=== PATIENT | male | born 1940 | race Caucasian/White ===

== ENCOUNTER 2018-08-31 13:14 | Emergency (ER) | payer MEDICARE, OTHER, SELFPAY ==
[2018-08-31 13:21] VITALS: BP 117/80; PULSE 65; RESP 16; TEMP 36.5; O2SAT 97
--- NOTE | 2018-08-31 14:15 | NUR.NOTE ---
Nursing Note: Access; Mckayla, called stating patient left without being seen. Jeannette Albarran
== END 2018-08-31 14:55 | disposition left before discharge ==
LOC: ER 14:00
PROVIDERS: PCP Family Medicine
DX: Z53.29 Procedure and treatment not carried out because of patient's decision for other reasons (principal)

== ENCOUNTER 2021-05-01 15:49 | Emergency (ER) | payer MEDICARE, OTHER, SELFPAY ==
[2021-05-01] VITALS (23 sets, daily range): BP systolic 138–158; BP diastolic 60–88; PULSE 49–64; RESP 12–19; TEMP 36.6; O2SAT 94–98
--- NOTE | 2021-05-01 16:00 | DI.CT_ITS ---
Exam(s) CT HEAD CERVICAL SPINE WO EXAM: CT HEAD CERVICAL SPINE WO CLINICAL HISTORY: fall,injury, on eliquis. TECHNIQUE: Imaging Protocol: Axial computed tomography images with coronal and sagittal reformatted images were created and reviewed COMPARISON: No exams were available for comparison FINDINGS: CT Head: Ventricles and Extra axial spaces: Normal in size and morphology for the patient's age. Hemorrhage: None. Cerebral parenchyma: No acute territorial infarct is present. There are areas of decreased attenuati on in the white matter most consistent with chronic microvascular ischemic disease. Midline shift: None. Brainstem/Cerebellum: Normal. Calvarium: Normal. Visualized Paranasal sinuses/Mastoids: Clear. Soft Tissues: Unremarkable. CT Cervical Spine: Bones: No acute fracture or subluxation. Multilevel degenerative changes are seen in the spine. Soft Tissues: Unremarkable. Thyroid gland: Unremarkable. Lung Apices: Clear. IMPRESSION: 1. No acute intracranial process. 2. No acute fracture or subluxation in the cervical spine. RADIATION DOSE DELIVERED: 1,399mGy.cm Total DLP DATA REPOSITORY: All CT scans at this facility are submitted to the National Radiology Data Registry (NRDR) Dose Index Registry (DIR) with the [employer] (ACR). RADIATION OPTIMIZATION: All CT scans at this facility use at least one of these dose optimization te chniques: automated exposure control; mA and/or kV adjustment per patient size (includes targeted exa ms where dose is matched to clinical indication); or iterative reconstruction.
--- NOTE | 2021-05-01 16:07 | ED.GENADUL_ITS ---
Discharge Plan Disposition Patient Disposition: HOME Condition: Stable Discharge Details Clinical Impression: Laceration of scalp, Head injury, Fall Primary Care Provider: Benny Gallagher ED Provider: Cliff Quintana Home Meds and New Rx's Prescriptions: Continued atorvastatin 40 mg Tablet 40 mg PO DAILY RF: 0 triamcinolone acetonide 0.1 % Cream 1 applic TOPICAL DAILY PRNRF: 0 omeprazole 20 mg Capsule,Delayed Release(Dr/Ec) 20 mg PO BID RF: 0 folic acid 1 mg Tablet 1 mg PO DAILY RF: 0 furosemide [Lasix] 20 mg Tablet 40 mg PO BID RF: 0 metoprolol succinate 25 mg Tablet Extended Release 24 Hr 20 mg PO DAILY RF: 0 Spiriva with HandiHaler 18 mcg Capsule, W/Inhalation Device 1 tab Inhalation DAILY RF: 0 apixaban 5 mg Tablet 1 tab PO BID RF: 0 buspirone 5 mg Tablet 5 mg PO BID RF: 0 doxycycline hyclate 100 mg Capsule 100 mg PO BID RF: 0 polyethylene glycol 3350 [Miralax] 17 gram Powder In Packet 17 g PO DAILY PRNRF: 0 tramadol 50 mg Tablet 50 mg PO BID PRNRF: 0 spironolactone 25 mg Tablet 25 mg PO DAILY RF: 0 levothyroxine 125 mcg Tablet 125 mcg PO DAILY RF: 0 docusate sodium [Colace] 100 mg Capsule 100 mg PO DAILY PRNRF: 0 aspirin 81 mg Tablet 81 mg PO DAILY RF: 0 multivitamin with minerals Tablet 1 tab PO DAILY RF: 0 Discharge Instructions Instructions: Head Injury (ED), Staple Care (ED) Additional Instructions: CT imaging of your head, neck and x-ray of your left elbow is all unremarkable. Laceration was repaired with 4 estiven. Cool compresses as tolerated. Please watch for new or worsening symptoms and return to the ER for any concerns. You may apply antibiotic dressing daily. Estiven should be removed in 5 days. I recommend contacting your primary care provider tomorrow to make them aware of your ER visit and need for outpatient reevaluation. Discharge Data Discharge Date/Time-TO BE ENTERED AT DEPARTURE: 05/01/21 18:30 Medical Decision Making 80-year-old gentleman who is anticoagulated, had a mechanical fall just prior to arrival injuring his left elbow and striking the top of his head sustaining laceration. Tetanus status appears to be up-to-date. Will apply LET. Will obtain CT imaging of head and C-spine as well as x-ray of left elbow. CT imaging of head and C-spine read by radiology as negative. C-collar removed. X-ray of left elbow read by radiology as negative Abrasion was cleaned. The head wound was thoroughly irrigated and cleaned and then approximate using 4 estiven. Patient tolerated well Patient remains hemodynamically stable and neurologically intact. He was witnessed ambulating to the restroom without difficulty. Patient has no additional questions or concerns and is comfortable discharge. Patient's son will pick him up from the ER. HPI General Mode of arrival: EMS . Date/Time Provider Initiated Documentation: 05/01/21 16:04 . Limitations to Documentation: no limitations . Information obtained by: patient and EMS . HPI Narrative: Is an 80-year-old gentleman, presenting via EMS, with a Chris history of COPD, hypertension, GERD, thyroid disease, on apixaban because of his heart valve, presenting to the ER with a chief complaint of mechanical fall and head injury. He states just prior to arrival he was walking [facility] up a stair, missed a stair, falling, sustaining a scalp laceration, striking his head, diffuse mild posterior neck pain and a left elbow abrasion. He denies LOC, global headache, visual changes, chest pain, shortness of breath abdominal pain, nausea vomiting, incontinence, numbness, tingling, weakness. He was asymptomatic prior to mechanical fall. Reports mild pain at the site of his laceration. Believes tetanus status is up-to-date Related Data Home Medications Medication Instructions Recorded Confirmed Spiriva with HandiHaler 1 tab INHALATION DAILY 08/31/18 05/01/21 apixaban 1 tab PO BID 08/31/18 05/01/21 atorvastatin 40 mg PO DAILY 08/31/18 05/01/21 folic acid 1 mg PO DAILY 08/31/18 05/01/21 furosemide [Lasix] 40 mg PO BID 08/31/18 05/01/21 metoprolol succinate 20 mg PO DAILY 08/31/18 05/01/21 omeprazole 20 mg PO BID 08/31/18 05/01/21 triamcinolone acetonide 1 applic TOPICAL DAILY PRN 08/31/18 05/01/21 aspirin 81 mg PO DAILY 05/01/21 05/01/21 buspirone 5 mg PO BID 05/01/21 05/01/21 docusate sodium [Colace] 100 mg PO DAILY PRN 05/01/21 05/01/21 doxycycline hyclate 100 mg PO BID 05/01/21 05/01/21 levothyroxine 125 mcg PO DAILY 05/01/21 05/01/21 multivitamin with minerals 1 tab PO DAILY 05/01/21 05/01/21 polyethylene glycol 3350 [Miralax] 17 g PO DAILY PRN 05/01/21 05/01/21 spironolactone 25 mg PO DAILY 05/01/21 05/01/21 tramadol 50 mg PO BID PRN 05/01/21 05/01/21 Allergies Allergy/AdvReac Type Severity Reaction Status Date / Time acetaminophen [From Percocet] Allergy Unverified 05/01/21 15:55 cephalexin Allergy Unverified 05/01/21 15:55 latex Allergy Unverified 05/01/21 16:01 lorazepam [From Ativan] Allergy Unverified 05/01/21 16:01 oxazepam [From Serax] Allergy Unverified 05/01/21 15:55 oxycodone [From Percocet] Allergy Unverified 05/01/21 15:55 rofecoxib [From Vioxx] Allergy Unverified 05/01/21 15:55 zolpidem [From Ambien] Allergy Unverified 05/01/21 15:55 amex Allergy Uncoded 05/01/21 15:55 coapaxine Allergy Uncoded 05/01/21 15:55 colabazet Allergy Uncoded 05/01/21 15:55 General Stated Complaint: Laceration SIMONE: 3 Review of Systems Constitutional Constitutional: Denies fatigue, Denies fever(s) and Denies headache(s) Eyes Eyes: Denies change in vision ENT Ears, Nose, Mouth, and Throat: Denies headache(s) Cardiovascular Cardiovascular: Denies chest pain and Denies dyspnea Respiratory Respiratory: Denies cough and Denies dyspnea Gastrointestinal Gastrointestinal: Denies abdominal pain, Denies nausea and Denies vomiting Musculoskeletal Musculoskeletal: Denies back pain Integumentary/Breasts Skin/Breast: Denies rash Neurologic Neurologic: Denies headache(s) Endocrine Endocrine: Denies fatigue Hematologic/Lymphatic Hematologic/Lymphatic: Reports easy bleeding and Reports easy bruising [facility] Social History Smoking/Tobacco Use Status: Never Smoking risk assessment performed?: Yes Drug use: Never Substance use type: does not use Do you feel safe at home: Yes Do you feel safe in your relationship?: Yes Exam Const General: cooperative, healthy appearing, comfortable and no acute distress Orientation: alert, awake and oriented x3 [facility] Head: normocephalic Head images: 1. 2 cm laceration. Bleeding controlled. Minimal local discomfort to palpation. No crepitus or foreign body. General nose exam: external nose normal Face and sinus: normal facial exam Mouth: moist mucous membranes Eyes General: appearance normal, both eyes and all related structures Alignment and Position: alignment normal Periorbital: periorbital findings normal Eyelids: eyelids normal Conjunctivae: conjunctivae normal Sclera: sclerae normal Cornea: corneas normal Pupils: PERRL EOM: EOM intact bilaterally Direct ophthalmoscopy: normal light reflex Neck Neck: normal visual inspection, trachea midline, supple, tender (Diffuse- posterior) and other (In a hard c-collar) Resp Effort & Inspection: normal respiratory effort and able to speak in complete sentences Auscultation: clear to auscultation bilaterally Cardio Rate: regular rate Rhythm: regular rhythm GI Palpation: soft and nontender Back/Spine/Pelvis Back: No back tenderness Skin General skin exam: no rashes or lesions noted Neuro General: patient alert, patient awake, patient oriented x3, moves all extremities and no focal motor deficits Cranial Nerves: CN's II-XI intact bilaterally Cognition: normal cognition Speech: speech normal Sensory Exam: no sensory deficits noted Extrem Shoulder/upper arm images: 1. Abrasion, mild local discomfort. Neuro, vascular, tendon intact Right lower extremity: normal to inspection, full ROM and normal capillary refill Left lower extremity: normal to inspection, full ROM and normal capillary refill Psych Appearance: grossly normal Mental Status: mental status grossly normal Course Vital Signs Vital signs: Vital Signs Temperature 36.6 C 05/01/21 15:48 Pulse 64 05/01/21 15:48 Blood Pressure 140/88 05/01/21 15:48 Pulse Oximetry 98 05/01/21 15:48 Temperature 36.6 C 05/01/21 15:48 Temperature Source Temporal Artery Scan 05/01/21 15:48 Pulse 64 05/01/21 15:48 Respiratory Effort Non-Labored 05/01/21 15:53 Blood Pressure 140/88 05/01/21 15:48 Blood Pressure Position Sitting 05/01/21 15:48 Pulse Oximetry 98 05/01/21 15:48 Oxygen Delivery Method Room Air 05/01/21 15:48 Oxygen Flow Rate 0 05/01/21 15:48 Pain Level 6 05/01/21 15:48 Procedures Laceration Laceration 1: Site: scalp Side (If applicable): left Size (cm): 2 Description: linear Depth: simple, single layer Local Anesthetic: other anesthetic (LET) Pre-repair: wound explored, irrigated extensively and deep structures intact Technique: other (4 estiven)
--- NOTE | 2021-05-01 16:15 | DI.RAD_ITS ---
Exam(s) XR ELBOW LT COMPLETE EXAM: XR ELBOW LT COMPLETE CLINICAL HISTORY: fall/injury. TECHNIQUE: 2D digital imaging was performed. COMPARISON: No exams were available for comparison FINDINGS: BONES: No acute fracture is present. No bony destructive lesion is seen. JOINTS: The elbow is normally aligned. No joint effusion is seen. SOFT TISSUE: Normal. IMPRESSION: No acute fracture or dislocation. DATA REPOSITORY: RADIATION DOSE DELIVERED:
--- NOTE | 2021-05-01 17:34 | DI.VRAD_ITS ---
PROCEDURE INFORMATION: Exam: CT Head Without Contrast Exam date and time: 05/01/2021 4:05 PM Age: 80 years old Clinical indication: Injury or trauma; Fall; Blunt trauma (contusions or hematomas); Additional info: On eliquis TECHNIQUE: Imaging protocol: Computed tomography of the head without contrast. COMPARISON: No relevant prior studies available. FINDINGS: Brain: Global cerebral volume loss is consistent with patient's age. Minimal white matter hypodensities, typically seen with small vessel disease/chronic white-matter ischemic changes of aging. No acute stroke. No intracranial hemorrhage or mass effect. No abnormal intra-axial or extra-axial fluid collection. Cerebral ventricles: Mild ventriculomegaly consistent with global cerebral volume loss, unchanged. Paranasal sinuses: Visualized sinuses are unremarkable. No fluid levels. Mastoid air cells: Visualized mastoid air cells are well aerated. Bones/joints: Unremarkable. No acute fracture. Soft tissues: Unremarkable. IMPRESSION: No acute abnormality. PROCEDURE INFORMATION: Exam: CT Cervical Spine Without Contrast Exam date and time: 05/01/2021 4:05 PM Age: 80 years old Clinical indication: Injury or trauma; Fall; Blunt trauma (contusions or hematomas); Additional info: On eliquis TECHNIQUE: Imaging protocol: Computed tomography images of the cervical spine without contrast. COMPARISON: No relevant prior studies available. FINDINGS: Bones/joints: No fracture or subluxation. Discs/Spinal canal/Neural foramina: Degenerative disc disease and facet arthrosis throughout the cervical spine. No severe bony spinal stenosis. Retropharyngeal space: Normal retropharyngeal soft tissues. Lungs: Lung apices are clear. Soft tissues: Unremarkable. IMPRESSION: No fracture or subluxation. Dictated and Authenticated by: Julian Long MD. Ordering:MAURICIO Coronado MD
[2021-05-01] MEDS: Lidocaine/Epinephri/Tetracaine Topical Gel 3 ML TP (17:37)
--- NOTE | 2021-05-01 17:47 | DI.VRAD_ITS ---
PROCEDURE INFORMATION: Exam: XR Left Elbow Exam date and time: 05/01/2021 4:16 PM Age: 80 years old Clinical indication: Injury or trauma; Fall; Sprain or strain; Elbow; Left; Additional info: On eliquis TECHNIQUE: Imaging protocol: XR Left elbow. Views: 3 or more views. Total images: 4 COMPARISON: No relevant prior studies available. FINDINGS: Bones/joints: No fracture, elbow effusion or dislocation. There is a tiny olecranon spur. Soft tissues: Unremarkable. IMPRESSION: Nothing acute. Dictated and Authenticated by: Duane Leon MD. Ordering:MAURICIO Coronado MD
== END 2021-05-01 18:30 | disposition home or self-care (01) ==
PROVIDERS: Emergency Provider Physician Assistant; PCP Family Medicine
DX: S01.01XA Laceration without foreign body of scalp, initial encounter (principal); W01.0XXA Fall on same level from slipping, tripping and stumbling without subsequent striking against object, initial encounter
CPT/HCPCS: 12001; 99284; 70450; 72125; 73080; 99283

== ENCOUNTER → 2022-10-09 00:42 | Outpatient (CLI) | payer OTHER, SELFPAY ==
--- NOTE | 2022-10-09 10:30 | DI.RAD_ITS ---
Exam(s) RF MODIFIED SPEECH BA SWALLOW TECHNIQUE: Modified barium swallow was performed in conjunction with speech pathology. CONTRAST MATERIAL: Oral barium Oral water soluble contrast was administered. COMPARISON: No exams were available for comparison FINDINGS: Fluoroscopy was provided during swallowing mechanism study performed by the speech therapist. Please note that this is not a formal esophagram. There is no javier aspiration evident on this study (see speech therapist report). No evidence of hypertense upper esophageal sphincter. No large cervical osteophytes indenting the barium column. Administered radiopaque pill exhibited significant stasis in the cervical esophagus. Required claritza us additional boluses 2 move it more distally into the stomach. There was no Zenker's diverticulum d emonstrated at this level. No obvious abnormality at the GE junction. No hiatal hernia evident. IMPRESSION: As above. Please refer to separate speech therapist report. Total fluoroscopy time = 2 minutes 27 seconds RADIATION DOSE DELIVERED: kimberly Whitaker=15.1 mGy
[2022-10-09] MEDS: Barium Sulfate 700 MG TAB PO (10:35)
[2022-10-09] MEDS: Barium Sulfate 81% w/w for Oral Suspension 148 GM BTL 90 GM PO (10:37)
[2022-10-09] MEDS: Barium Sulfate Oral Paste 40% W/V 230 ML TUBE 13 ML PO (10:39)
[2022-10-09] MEDS: Barium Sulfate 40% W/V 240 ML BTL 80 ML PO (10:39)
--- NOTE | 2022-10-09 10:57 | ST.MBS ---
Date of Service Date of service: 10/09/22 Time of Service: 10:00 Modified Barium Swallow Study Findings: Video fluoroscopic Swallowing Evaluation (VFSE) / Modified Barium Swallow Study (MBSS) Speech Language Pathology Report Patient referred for VFSE/MBSS from [facility] Care given complaints of choking. HPI & Patient report of function: 81 y/o M? with celiac disease, anxiety, CHF, dyskinesia of esophagus, presence of heart-valve replacement,atrial fibrilation, presenting with a longstanding history of postprandial coughing and sneezing. He recalls having a swallow study (?regular vs modified) done over 10 years ago. No history of pneumonia and no known history of CALL PERSON services. Medical History All Active Problems?(Updated 08/21/22 @ 15:15 by Kayce Gee) Laceration of scalp (Acute) Head injury (Acute) Fall (Acute) Medical History?(Updated 08/21/22 @ 15:15 by Kayce Gee) A-fib Anxiety disorder Celiac disease Chronic systolic (congestive) heart failure Closed fracture of clavicle Closed fracture of humerus Dermatophytosis of nail Dyskinesia of esophagus Dysphagia Erythematous condition Impotence of organic origin Keratoderma, acquired longterm current use of anticoagulant Other hammer toe (acquired) Other specified hypothyroidism Presence of prosthetic heart valve Rheumatoid arthritis Sensorineural hearing loss Surgical History?(Updated 08/21/22 @ 15:15 by Kayce Gee) Presence of other heart-valve replacement Social History Education Level: high school (+ ) 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 Communication Needs Primary languages spoken: Georgian, also speaks English? Hearing status: Aided Bilaterally Vision status: wears glasses IMPRESSIONS: FUNCTIONAL COMMUNICATION MEAUSURE: [id number] (RITCHIE-NOMS FCM LEVEL 6) Swallow safety is mildly impaired; swallow efficiency is impaired. Mild chronic jezn-srmetdbnmj-gsyenfvtci dysphagia. Characterized primarily by the physiologic deficits as outlined below, resulting in laryngeal penetration (thin liquids), residue (pharyngeal, oral), stasis(esophageal). Patient appears to be at low risk for potential aspiration PNA and/or pulmonary compromise and low risk for malnutrition, low risk for dehydration. Diet modification is indicated; non-oral nutrition is not indicated. Swallow prognosis is good given: Positive prognostic factors: Severity, Motivation, Cognitive status, Negative prognostic factors: Age, Time since onset, and pending patient/caregiver training in risk management as outlined, including use of trialed compensatory strategies. Patient appears to be a good candidate for behavioral swallow rehabilitation. Specialist referrals:? GI to evaluate esophageal phase impairments and potential interventions. RECOMMENDATIONS: Diet Texture Recommendation:? IDDSI LEVEL 6-Soft & Bite-Sized Solids LIQUIDS 0-Thin Liquids Please see further details at?[email or web address].[email or web address] MEDICATIONS CUT OR CRUSHED ABLE with 4-Puree Diet texture modification is per patient's preference; please adjust diet textures at patient's discretion & collaboration with care team. Do not alter medications (e.g., cut)? without advice from your MD or pharmacist. Risk Management Strategies:? Behavioral reflux precautions, including upright position during + 90 mins after meals.\ Chew very thoroughly and add sauces/gravies to your foods. Small bites, approx [id number] Small sips, approx 10 mL Alternate solids/liquids as able Multiple swallows per bolus to encourage clearance of pharyngeal stasis/residue Control risk factors for aspiration pneumonia via (a) thorough oral hygiene & (b) maintaining physical mobility as tolerated PLAN: Place GI referral with [facility]. Therapy: Recommend subsequent outpatient session with CALL PERSON to review results of today's exam and develop treatment plan as appropriate. Likely 1-2 sessions needed to train compensatory strategies. Goals: 1. Patient will report implementation of reflux management strategies to reduce impact of possible GERD on swallow function. 2. Patient will report increased frequency and diligence of oral care to reduce risk of pulmonary complications of aspiration. 2. Patient will demonstrate independent use compensatory swallow strategies as described in recommendations section x1-2 sessions. 3. Patient will verbalize understanding of education r/t normal vs disordered swallow function, s/sx of aspiration to watch for, relationship between respiratory function and deglutition, results of this examination, and rationale for recommended diet textures and risk management strategies including. ----- OBJECTIVE Videofluoroscopic Swallow Evaluation (VFSE/MBSS) was conducted in the lateral and spajbquh-[id number] projection by Speech-Language Pathologist, in collaboration with Radiologist, to evaluate oropharyngeal swallow function. Anatomic view under fluoroscopy: WFL PO Barium Contrast Trials Oral barium water-soluble contrast was administered as follows: IDDSI Level 0 Varibar thin liquid (40% w/v) IDDSI Level 2 Varibar nectar thick/mildly thick liquid (40% w/v) IDDSI Level 4 Varibar pudding/pureed/extremely thick (40% w/v) IDDSI Level 7 Regular Solid: 1/2 blayne cracker coated in 3 mL Varibar pudding 13 mm barium tablet taken with Thin Liquids. MBSImP Component Scores: COMPONENT Scale SCORE 1 Lip closure (0-4) 0 Resulted in no labial escape 2 Hold Position (0-3) 0 Maintained a cohesive bolus between tongue to palatal seal 3 Bolus Preparation (0-4) 1 Resulted in slow prolonged chewing/mashing with complete re-collection 4 Bolus Transport (0-4) 1 Demonstrated delayed initiation of tongue motion 5 Oral Residue (0-4) 1 Was a trace, lining oral structures 6 Swallow Initiation (0-4) 0 Occurred as bolus head at posterior angle of the mandibular ramus 7 Soft Palate Elevation (0-4) 0 Resulted in no bolus between soft palate and the pharyngeal wall 8 Laryngeal Elevation (0-3) 1 Was decreased with partial superior movement of thyroid cartilage/partial approximation of arytenoids to epiglottic petiole 9 Anterior Hyoid Motion (0-2) 0 Demonstrated complete anterior movement 10 Epiglottic Movement (0-2) 1 Resulted in partial inversion 11 Laryngeal Closure (0-2) 1 Was incomplete with narrow a column of air/contrast in laryngeal vestibule 12 Pharyngeal Stripping Wave (0-2) 1 Was present, but diminished 13 Pharyngeal Contraction (0-3) 0 Was complete 14 PES Opening (0-3) 1 Demonstrated partial distension/partial duration, with partial obstruction of flow 15 Tongue Base Retraction (0-4) 0 Allowed no contrast between the tongue base and posterior pharyngeal wall 16 Pharyngeal Residue (0-4) 2 Was a collection of residue within or on pharyngeal structures (likely under-estimate of pharyngeal function, see notes below). 17 Esophageal Clearance (0-4) 2 Resulted in esophageal retention with retrograde flow below pharyngoesophageal segment Notes: Noting trace deep penetration with no aspiration during or after the swallow for large volumes of thin liquids. No penetration with single, small sips liquid. Patient with good pharyngeal clearance of puree and solids except when swallowing a puree bolus chaser to clear proximal retention of 13mm tablet; appearing with retrograde flow of puree bolus through UES due to the tablet preventing complete bolus flow through UES. Patient was sensate to this residue and appeared with gagging/coughing response, able to clear with re-swallow. Results: COMPONENT Scale SCORE 1 Oral Score (0-18) 2 2 Pharyngeal Score (0-29) 7 3 Esophageal Score (0-4) 2 Dysphagia Outcome and Severity Scale: COMPONENT Scale SCORE 1 LEVEL (1-7) 5 Full PO: Modified Diet and/or [place] - Mild dysphagia; Distant supervision may need 1 diet consistency restricted Penetration-Aspiration Scale: COMPONENT Scale SCORE 1 Thin liquid (1-8) 4 Contrast entered the airway, contacted the vocal folds, and was ejected from the airway. 2 [place] thick (1-8) NA 3 Honey thick (1-8) NA 4 Pudding thick (1-8) 1 Contrast did not enter the airway 5 Cookie (1-8) 1 Contrast did not enter the airway Trialed Compensatory Strategies & Outcome: Maneuvers Successful (+) Unsuccessful (-) Postures Successful (+) Unsuccessful (-) 3 second Preparatory Set? ? +/- Chin Tuck Posture? ? Cough? ? Posterior Head tilt? Reflexive? Cued? Throat Clear? ? Head Tilt to? Reflexive? Left? Cued? Right? ? Saliva swallow? ? + Head Turn/Rotate to? ? Supraglottic Swallow? Left? ? Super-supraglottic Swallow? Right? ? Bolus Modifications Successful (+) Unsuccessful (-) Delivery/Alternating Consistencies ? Follow with Liquid Wash - (to clear esophageal stasis) ? Follow with Solid Bolus? + (to clear oral stasis of tablet) Delivery/Via Straw? ? Reduced Volume? ? + Reduced Rate of Intake? ? Increased Viscosity? ? + Other:?? ? Thank you for allowing us to take part in this patient's care. Please feel free to contact the [facility] Speech Language Pathology Department with any questions/concerns. Coding CPT Codes MOTION FLUOROSCOPY/SWALLOW - [id number] ([id number])
== END ==
PROVIDERS: PCP Internal Medicine; Visit Provider Internal Medicine
DX: R13.10 Dysphagia, unspecified (principal)
CPT/HCPCS: 92611; 74221

== ENCOUNTER 2025-06-18 19:25 | Inpatient (IN) | payer MEDICARE, SELFPAY ==
[2025-06-18 19:39] VITALS: BP 101/81; PULSE 64; RESP 17; TEMP 36.4; O2SAT 97
[2025-06-18 20:00] VITALS: BP 101/81; PULSE 64; RESP 17; TEMP 36.4; O2SAT 97
--- NOTE | 2025-06-18 22:28 | W.PM.HP.N ---
Date of service: 06/18/25 Time of Service: 22:28 Assessment and Plan Assessment and plan (1) Chronic systolic (congestive) heart failure: Assessment and plan: Would have benefited from bringing a copy of his interoperative report or an echocardiogram. His medications do indicate that he has CHF. Hopefully be able to figure this out tomorrow. (2) correction current use of anticoagulant: Assessment and plan: The patient is on Eliquis but once again is unclear what kind of valve has been placed. I did not hear a significant mechanical sound but the patient could have a mechanical valve. It is my impression that Eliquis is not usually used for mechanical valves and these folks usually use Coumadin (3) Presence of prosthetic heart valve: Assessment and plan: As above, will need more research (4) A-fib: Assessment and plan: Patient is on a rate control as well as Eliquis. Metoprolol 20 mg daily extended release (5) Anxiety disorder: Assessment and plan: Continue with medical management (6) Sensorineural hearing loss: Assessment and plan: Noted (7) Dyslipidemia: Status: Acute Assessment and plan: Continue with statin (8) Iron deficiency: Status: Acute Assessment and plan: Continue with iron (9) COPD (chronic obstructive pulmonary disease): Status: Chronic Assessment and plan: Patient is on albuterol as well as DuoNeb. Continue with these medications History of Present Illness History of Present Illness Chief Complaint: valve was leaking Narrative: This is a 84-year-old gentleman who was transferred from [facility] after a TAVR. I have reviewed the transfer documents and there is absolutely no H&P or discharge summary attached to his file. The patient is significantly hard of hearing and is very difficult to get a linear history from him. Patient states that he had his first valve replacement in the early s and this was a recheck and replacement. Patient states that his main complaint prior to this was shortness of breath. Patient states that the doctor who recommended this procedure is named Cam. Patient does not know for sure what kind of valve was replaced but he thinks it was a bovine valve. In regards to his transfer packet there are postop instructions and med rec. No studies op reports H&P or discharge summary was included. I did discuss with my colleague Dr. Dorsey and no doc to doc conversation was had either Review of Systems All systems reviewed & are unremarkable except as noted in HPI and below PFSH All Active Problems (Updated 06/18/25 @ 22:33 by Bear Samano MD) COPD (chronic obstructive pulmonary disease) (Chronic) Iron deficiency (Acute) Dyslipidemia (Acute) Corns and callosities (Acute) Pain, foot (Acute) Nail dystrophy (Acute) Laceration of scalp (Acute) Head injury (Acute) Fall (Acute) Medical History (Updated 06/18/25 @ 22:33 by Bear Samano MD) A-fib Sensorineural hearing loss Rheumatoid arthritis Presence of prosthetic heart valve Other specified hypothyroidism Other hammer toe (acquired) 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 Keratoderma, acquired Impotence of organic origin Closed fracture of humerus Closed fracture of clavicle Erythematous condition Dyskinesia of esophagus Dermatophytosis of nail Chronic systolic (congestive) heart failure Celiac disease Anxiety disorder Dysphagia Surgical History (Updated 08/21/22 @ 15:15 by Kayce Gee) Presence of other heart-valve replacement Social History Smoking/Tobacco Use Status: Never Smoking risk assessment performed?: Yes Drug use: Never Substance use type: does not use Housing: house Education Level: high school (+ [employer]) Current gender identity: male Do you feel safe at home: Yes Do you feel safe in your relationship?: Yes Meds Allergies and Home Medications Allergies Allergy/AdvReac Type Severity Reaction Status Date / Time acetaminophen (From Percocet) Allergy Unverified 05/01/21 15:55 cephalexin Allergy Unverified 05/01/21 15:55 diphenhydramine (From Allergy Verified 08/21/22 15:38 Benadryl) ibuprofen (From Advil) Allergy Verified 08/21/22 15:38 latex Allergy Unverified 05/01/21 16:01 lisinopril Allergy Verified 08/21/22 15:37 lorazepam (From Ativan) Allergy Unverified 05/01/21 16:01 metoclopramide (From Reglan) Allergy Verified 08/21/22 15:37 oxazepam (From Serax) Allergy Unverified 05/01/21 15:55 oxycodone (From Percocet) Allergy Unverified 05/01/21 15:55 Penicillins Allergy Verified 08/21/22 15:37 prochlorperazine (From Allergy Verified 08/21/22 15:38 Compazine) rofecoxib (From Vioxx) Allergy Unverified 05/01/21 15:55 zolpidem (From Ambien) Allergy Unverified 05/01/21 15:55 amex Allergy Uncoded 05/01/21 15:55 coapaxine Allergy Uncoded 05/01/21 15:55 colabazet Allergy Uncoded 05/01/21 15:55 Home Medications ?Medication ?Instructions ?Recorded ?Confirmed ?Type apixaban 5 mg tablet 1 tab PO BID 08/31/18 06/18/25 History atorvastatin 40 mg tablet 40 mg PO DAILY 08/31/18 06/18/25 History folic acid 1 mg tablet 1 mg PO DAILY 08/31/18 06/18/25 History omeprazole 20 mg capsule,delayed 20 mg PO BID 08/31/18 06/18/25 History release triamcinolone acetonide 0.1 % 1 applic topical DAILY PRN 08/31/18 06/18/25 History topical cream buspirone 5 mg tablet 5 mg PO BID 05/01/21 06/18/25 History docusate sodium 100 mg capsule 100 mg PO DAILY PRN 05/01/21 12/01/22 History (Colace) levothyroxine 125 mcg tablet 125 mcg PO DAILY 05/01/21 06/18/25 History polyethylene glycol 3350 17 gram 17 g PO DAILY PRN 05/01/21 06/18/25 History oral powder packet (Miralax) spironolactone 25 mg tablet 25 mg PO DAILY 05/01/21 06/18/25 History tramadol 50 mg tablet 50 mg PO BID PRN 05/01/21 06/18/25 History albuterol sulfate 2.5 mg/3 mL 2.5 mg inhalation Q6H PRN 08/21/22 06/18/25 History (0.083 %) solution for nebulization carboxymethylcellulose sodium 0.5 2 drp ophthalmic (eye) DIRECTED 08/21/22 06/18/25 History % eye drops PRN diclofenac sodium 1 % topical gel 2 g topical DIRECTED 08/21/22 12/01/22 History ferrous sulfate 325 mg (65 mg mg PO 08/21/22 12/01/22 History iron) capsule,extended release hydroxychloroquine 200 mg tablet 200 mg PO BID 08/21/22 06/18/25 History acetaminophen 500 mg tablet 1,000 mg PO Q6H PRN 06/18/25 06/18/25 History doxycycline hyclate 100 mg capsule 100 mg PO ONCE 06/18/25 06/18/25 History empagliflozin 25 mg tablet 12.5 mg PO DAILY 06/18/25 06/18/25 History (Jardiance) fluticasone propionate 50 2 spray intranasal DAILY 06/18/25 06/18/25 History mcg/actuation nasal spray,suspension (Flonase Allergy Relief) guaifenesin 600 mg tablet, 600 mg PO BID 06/18/25 06/18/25 History extended release 12 hr ipratropium 0.5 mg-albuterol 3 mg 3 ml inhalation Q6H 06/18/25 06/18/25 History (2.5 mg base)/3 mL nebulization soln ketoconazole 2 % topical cream 1 applic topical DAILY 06/18/25 06/18/25 History lidocaine 3 % topical cream 1 applic topical DAILY 06/18/25 06/18/25 History metoprolol tartrate 25 mg tablet 12.5 mg PO BID 06/18/25 06/18/25 History nitroglycerin 0.4 mg sublingual 0.4 mg sublingual Q5-15M PRN 06/18/25 06/18/25 History tablet pantoprazole 40 mg tablet,delayed 40 mg PO BID 06/18/25 06/18/25 History release (Protonix) potassium chloride 20 mEq 20 meq PO DAILY 06/18/25 06/18/25 History tablet,extended release(part/cryst) (Klor-Con M) psyllium husk 3 gram oral powder 1 packet PO BID 06/18/25 06/18/25 History packet (Daily Fiber (psyllium-aspartame)) torsemide 20 mg tablet 20 mg PO BID 06/18/25 06/18/25 History trazodone 50 mg tablet 50 mg PO DAILY 06/18/25 06/18/25 History Exam Narrative Exam Narrative: HEENT-normocephalic atraumatic mucous membranes moist Neck-no lymphadenopathy no JVD no thyromegaly Cardiovascular-irregularly irregular but no murmur rubs or gallops Abdomen-scaphoid Extremities-no sinus clubbing or edema Neurologic-cranial nerves II through XII intact as tested Results Last Vital Signs Temp 36.4 C L 06/18/25 20:00 Pulse 64 06/18/25 20:00 Resp 17 06/18/25 20:00 BP 101/81 06/18/25 20:00 Pulse Ox 97 06/18/25 20:00 Time Spent Time spent with Patient: <40 minutes Time was spent: preparing to see the patient(eg.review tests), obtaining and/or reviewing separately otained hiistory, ordering medications,tests, procedures, referring, communicating with other health medicare specialist, indepentently interpreting results, counseling the patient and care coordination
[2025-06-18] MEDS: traZODone 50 MG TAB PO (23:44)
[2025-06-18 23:59] LABS: Abs Immature Grans 0.01 10^3/uL (0.0-0.06); HCT 30.4 % (40.0-50.0); HGB 10.2 g/dL (13.5-17.5); Immature Grans % 0.2 %; MCH 30.1 pg (27.0-33.0); MCHC 33.6 % (32.0-36.0); MCV 90 fL (80-95); MPV 11.5 fL (8.0-11.0); RBC 3.39 10^6/uL (4.36-5.78); RDW 12.8 % (11.8-14.1); RDW-SD 42.2 fL; WBC 4.73 10^3/uL (4.4-10.8)
[2025-06-19 00:09] LABS: Anion Gap 6.2 mmol/L (3-11); BUN 48 mg/dL (7-18); CO2 30.8 mmol/L (21.0-32.0); Calcium 9.0 mg/dL (8.5-10.1); Chloride 97 mmol/L (98-107); Estimated GFR 45.34 (mL/min/1.73m2); Glucose 111 mg/dL (74-106); Potassium 4.1 mmol/L (3.5-5.1); Sodium 134 mmol/L (136-145)
[2025-06-19 00:15] LABS: Platelet Count 49 10^3/uL (130-400)
[2025-06-19] MEDS: Levothyroxine 125 MCG TAB PO (06:28)
[2025-06-19] MEDS: Normal Saline Flush 10 ML SYR IVP ×2 (06:29→21:40)
[2025-06-19 07:20] VITALS: BP 123/85; PULSE 84; RESP 15; TEMP 36.5; O2SAT 96
[2025-06-19 08:22] VITALS: O2SAT 97
--- NOTE | 2025-06-19 08:23 | RESPIRATORY ---
Pt wears 2-2.5L O2 at night, has home concentrator through [employer]- concentrator not here at hospital
[2025-06-19] MEDS: busPIRone 5 MG TAB PO ×2 (08:38→21:37)
[2025-06-19] MEDS: Potassium Chloride 20 MEQ TABCR PO (08:38)
[2025-06-19] MEDS: Multivitamin w/Minerals TAB 1 TAB PO (08:38)
[2025-06-19] MEDS: Apixaban 5 MG TAB PO ×2 (08:38→21:38)
[2025-06-19] MEDS: Hydroxychloroquine 200 MG TAB PO ×2 (08:38→21:38)
[2025-06-19] MEDS: Folic Acid 1 MG TAB PO (08:38)
[2025-06-19] MEDS: Pantoprazole 40 MG TABCR PO ×2 (08:39→15:51)
[2025-06-19] MEDS: Metoprolol 12.5 MG TAB PO ×2 (08:39→21:38)
[2025-06-19] MEDS: Empaglifozin 25 MG TAB 12.5 MG PO (08:39)
[2025-06-19] MEDS: guaiFENesin 600 MG TABCR PO ×2 (08:59→21:38)
[2025-06-19] MEDS: Psyllium PKT 1 EACH PO ×2 (09:06→21:39)
--- NOTE | 2025-06-19 09:08 | IN_ITS ---
PT Notes Visit Reasons: TAVR/Deconditioning Physical Therapy Inpatient Initial Evaluation Date: 06/19/2025 Referring Doctor: Bear Samano MD PT Orders: PT CONSULT: Eval/Treat Precautions: Fall. Standard. Activity as tolerated. SNHL. Patient Profile/Admitting Diagnosis: Nayan is an 84-year-old male patient who is a [place] [facility] [place] for continued post-surgical rehabilitation and management. Patient also has admitting diagnoses of chronic anticoagulation use, anxiety disorder, low iron, AF and chronic systolic CHF. 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 Son and daughters live within an hour of patient and can provided support as needed. Equipment Owned/DME: left hospital bed, wheelchair, handicap-accessible toilet, walker but patient has not been in need of these Subjective: Denied headache, chest pain, and lightheadedness throughout session. Objective: General Observation: Acquired deformity of R UE from a fall off a roof. IV acess through L UE. Mental Status: Alert and oriented as to person, place, time, and purpose. Able to pay attention, focus, and respond appropriately. Pain: None reported during session ROM: Right Upper Extremity: Shoulder Flexion allowed up to 90 degrees. Shoulder abduction allowed up to 90 degrees. Elbow flexion WFL. Wrist flexion WFL. Functional opening and closing of hand WFL. Left Upper Extremity: Shoulder Flexion WFL. Shoulder abduction WFL. Elbow flexion WFL. Wrist flexion WFL. Functional opening and closing of hand WFL. Right Lower Extremity: Hip flexion WFL. Hip abduction WFL. Knee flexion WFL. Ankle dorsiflexion WFL. Ankle plantarflexion WFL. Left Lower Extremity: Hip flexion WFL. Hip abduction WFL. Knee flexion WFL. Ankle dorsiflexion WFL. Ankle plantarflexion WFL. Strength: Right Upper Extremity: Shoulder flexors 3-/5. Shoulder abductors 3-/5. Elbow flexors 4-/5. Elbow extensors 4-/5. Public Works Inspector strong. Left Upper Extremity: Shoulder flexors 4/5. Shoulder abductors 4/5. Elbow flexors 5/5. Elbow extensors 4-/5. Public Works Inspector strong. Right Lower Extremity: Hip flexors 4-/5. Hip abductors 4-/5. Knee flexors 4/5. Knee extensors 4-/5. Ankle dorsiflexors 4-/5. Ankle plantarflexors 4-/5. Left Lower Extremity: Hip flexors 4-/5. Hip abductors 4-/5. Knee flexors 4/5. Knee extensors 4-/5. Ankle dorsiflexors 4-/5. Ankle plantarflexors 4-/5. Bed Mobility/Transfers: Minimal cueing provided for use of B hands as needed for support, movement s equence, AD management, and posture to reduce fall risk and minimize pain report Sit to stand contact guard assist Stand to sit contact guard assist Bed to reclining chair stand by assist Reclining chair to bed stand by assist Gait: 250 feet of lecel surface ambulation without an assistive device but with contact guard assist to stand by assist with minimal path deviation and slowed directional change. Step height and length decreased. Arm swing in B sides decrased. No LOB. Mild SOB. Balance: Static Sitting: Normal Dynamic Sitting: Normal Static Standing: Fair Dynamic Standing: Fair correct Special Tests: Mobility Limitations Standardized Measure [facility] AM-PAC 6 clicks Basic Mobility Inpatient Short Form: Raw Score: 20 CMS Score: 36% deficit 4-Stage Balance Test: Feet together 10 seconds Semi-tandem <10 seconds Full tandem <10 seconds One-legged stance deferred Informed Consent/Education: Patient was instructed in purpose of PT consult and plan of care. Agreeable to proceed with established PT POC to achieve personal goals. Assessment: Patient presents with clinical signs and symptoms consistent with current/admitting diagnoses that have resulted to mobility limitations, gait instability, generalized weakness, and overall ADL decline as demonstrated by the following impairment level findings: 1. Decreased strength to B UE/LE major muscle groups; R UE more affected than L due to pre-existing acquired deformity 2. Impaired standing balance 3. Impaired activity tolerance 4. Limitation of joint range of motion in R shoulder (pre-existent) 5. Shortness of breath Impairments are contributing to the following functional limitations: 1. Increased completion time for mobility ADL performance 2. Increased risk for falls 3. Difficulty with managing steps alone safely Patient is assessed as a 39850 moderate complexity based on the following: History: 84-year-old male with past medical history as indicated above Examination: Demonstrable impairment in strength, balance, and mobility level with underlying impairments and functional limitations as exhibited above as well as deficit score of 36% utilizing the [facility] Mobility Inpatient Short Form Presentation: Evolving Decision Makin moderate complexity Goals: Goals X1 week 1. Supine-Sit independent 2. Sit-Supine independent 3. Sit-Stand independent 4. Stand-Sit independent 5. Bed-Chair independent 6. Chair-Bed independent 7. Independent gait on level surface with use of no device for at least 300 feet without report of pain nor dyspnea 8. Independent stair negotiation while holding onto B rails for at least 5 steps without report of pain nor dyspnea 9. Independent with home exercise program 10. Good static and dynamic standing balance/tolerance Plan of Care/Treatment Plan: 1-2x/day, 7 days/week x 1 week. Plan of care has been reviewed with the HIM ASSISTANT providing the service under Physical Therapy direction. Initiate Physical Therapy intervention for pain management as needed, strengthening, bed mobility, transfers, gait, stairs, balance training, and use of assistive device. DISCHARGE RECOMMENDATIONS: PT TREATMENT CODE/TIME: 58466 x 20 minutes for 1 unit, 60989 x 10 minutes for 1 unit (9:00-9:30). Thank you for the opportunity to participate in the care of this patient. Domitila Woods PT, DPT, CLT [facility] [place], [place]
[2025-06-19] MEDS: Torsemide 20 MG TAB PO ×2 (09:41→21:37)
[2025-06-19] MEDS: Ketoconazole 2% CREAM 15 GM TUBE TP (09:42)
[2025-06-19] MEDS: Diclofenac 1% Gel 100 GM TUBE TP (11:45)
--- NOTE | 2025-06-19 12:44 | OT.INIE ---
Occupational Therapy Notes Inpatient Occupational Therapy Evaluation Date: 06/19/25 Referring Doctor:Dr. Samano OT Orders: Non Urgent Precautions: Fall, Standard, Full PATIENT PROFILE/ADMITTING DIAGNOSIS: Pt is a 84 year old male who was admitted to [facility] after being transferred from [facility] after a TAVR; with the following dx of COPD, Iron Deficiency, Dyslipidemia, Pain in the foot. 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 He notes that he did have HH services at one point but they only came minimally. He reports that he is (I) at baseline. 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 He notes that this hits him hard at times but he likes to just keep going. He has a handicap home from when his was there which he notes is a strong point in his recovery at this time. Functionally he has a (R) UE which is deformed d/t a bad break which healed poorly after multiple surgeries. This was limiting at baseline as he is not able to touch his face or reach with the UE. He notes that the plan is for him to stay here at this time. Stiffness currently in his LE limit his ADLs but he is currently utilizing a FWW which is also different than what he used prior. Equipment owned/DME: FWW, cane, wheelchair, grab bars, raised toilet seat, sock aid SUBJECTIVE: Pt is sitting in chair when OT arrived and is agreeable to OT consult. He notes that he is a transfer from another hospital and is here for more of a progressive rehab situation. OBJECTIVE: General Observation: Pleasant, IV in (L) UE, (R) UE deformity Mental Status: A&Ox4 Pain: c/o stiffness in joints, pain in (B) UE, neck and LE ROM: RUE Shoulder flexion ~90*, elbow flexion to 40*, elbow extension full with deformity to the elbow joint, hand/digits WFL L UE AROM WFL STRENGTH: RUE Financial Counselor strength strong and symmetrical LUE Financial Counselor strength strong and symmetrical, shoulder flexion 4/5, bicep 4-/5, tricep 4/5, wrist flexor/extensors 5/5 FUNCTIONAL MOBILITY/ADLS: Transfers with FWW BATHING Pt did not perform with OT at todays evaluation he did this with nursing prior. He is able to perform his bathing with his (L) UE. He has a removable shower head at home which does seem to help. DRESSING seated in chair with mod vc Dressing UE (I) don and doffing tshirt Dressing LE Pt is (I) with don and doffing (B) socks with increased performance time and struggle. OT educated and trained pt in sock aide and slot machine mechanic to use for LE dressing. Pt was able to demonstrate with (A) but OT will continue to work with pt on this. GROOMING (I) TOILETING NT with OT but able to use (L) UE for toileting hygiene EATING seated in chair (I) BALANCE: Static sitting Normal Dynamic Sitting Normal Static Standing Good SPECIAL TESTS: Daily Activity Limitations Standardized Measure [facility] AM -PAC ?6 clicks? Daily Activity Inpatient Short Form: Raw score: 20 Standardized score: 42.03 CMS score: 38.32% INFORMED CONSENT/EDUCATION: Pt instructed in purpose of OT Consult and plan of care. ASSESSMENT: Patient is a 84-year-old male referred to occupational therapy services with diagnosis of COPD, Iron Deficiency, Dyslipidemia, Pain in the foot, laceration of scalp d/t head injury post fall. Patient presents with clinical signs and symptoms consistent with dx, as demonstrated by the following impairment level findings/ functional limitations: Impairments in ADL/IADL and leisure activities, decreased functional activity tolerance from prolonged hospital stay, decreased hip mobility which limits LE dressing, pain in (B) UE/LE and neck. Patient is assessed as a Moderate 46537 complexity based on the following: History: see above Examination: see functional limitations as noted above Presentation: evolving Decision Making: Moderate complexity GOALS Goals x1 week 1. Pt will get washed up and dressed in new clothes every day with mod (I) and min vc 2. Dressing- Pt will be mod (I) with pants, socks and shoes with ideal techniques 3. Bathing- Seated in chair (I) UE/LE 4. Toileting- on toilet (I) 5. Eating seated in chair (I) PLAN OF CARE/TREATMENT PLAN: 1x/day, 3-5 days/ week x 1week Initiate Occupational Therapy Services for bathing, dressing, grooming, toileting, eating, transfer training. DISCHARGE RECOMMENDATIONS OT recommends that based on pts current level of function that he return home with HH services. Plan is that pt would like to return home (I). OT and pt will work on functional ADL/IADL skills and (I) to (A) pt with return to baseline level with use of adaptive equipment and education and training in equipment use. TREATMENT TIME/MINUTES/CODES 33527, 58784, 30 minutes [facility] [place], [place]
--- NOTE | 2025-06-19 13:02 | CHAPLAIN ---
Nayan was up in the recliner working to get his compression socks on. He was very pleasant and easily engaged in conversation, telling me about living alone in [place]. He goes to the meal site in [place], on Wednesdays, sometimes unless he has recycling to do. He told me about his heart valve replacements in 2004, 2014 and then a third one more recently. Nayan said his daughter is coming to visit him today. I explained my role and offered support.
--- NOTE | 2025-06-19 18:01 | CMSA_ITS ---
Date of service: 06/19/25 Time of Service: 11:00 SB Psychosocial/Act. [facility] Hospital Admission Admission Date: 06/18/25 Admission From:: [facility] [place] [facility] Diagnosis:: s/p TAVR, deconditioned post surgery Swing Bed Admission Swing Bed Admit Date:: 06/18/25 Swing Bed Level of Care: Level 1/SNF Social Supports PREVIOUS FUNCTIONAL STATUS/SOCIAL/FAMILY SUPPORTS:: Caden was living alone prior to his TAVR. He was driving and was very independent with no services. Caden is well supported by his 5 children and their families. 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 Sometimes has trouble with word finding, but is excellent at remembering dates Sensory Systems: intact Behavior:: no issues. Is a favorite of the staff already. Medical History PAST MEDICAL HISTORY/PAST SURGICAL HISTORY:: s/p TAVR early May, also had TAVR in the early , COPD, afib, anxiety, celiac disease General Health:: very good Past Psychiatric Treatment:: none, does take an anti-anxiety medication Admission Data Reason for Swing Bed Admission:: strengthening after TAVR surgery. Was at [facility] x 20 days. Lives alone Discharge Plan:: Anticipate that Caden will discharge home with new services of through [facility] of , PT/OT. [facility] services of health aid, homemaker and telehealth Assessment: Caden is already doing well and is very motivated. No issues anticipated for his discharge. Mixer Crane Operator: Madelaine Rich Date Assessment was completed:: 06/19/25
--- NOTE | 2025-06-19 18:08 | CMSCP_ITS ---
Date of service: 06/19/25 Time of Service: 11:00 Swingbed Plan of Care Activites/Discharge Plan of care: SWING BED PROGRAM ACTIVITIES/DISCHARGE PLAN OF CARE ACTIVITIES PLAN Date:06/18/25 Identified Need:Individual needs to keep motivated and fight off boredom Intervention/Plan:TV in room, offer activity cart - Caden has already been given a word search book, offer Reiki when available, offer pet therapy and music therapy when available Initials : TERRENCE DISCHARGE PLAN Date:06/18/25 Identified Need:safe discharge home Intervention/Plan:Caden will work with PT 1-2x daily and with OT as available to prepare for safe discharge home. He will have new services through [facility] - PT and OT. He will also have [facility] services of a health aid and a homemaker. Initials: TERRENCE
[2025-06-19 19:19] VITALS: BP 103/69; PULSE 75; RESP 19; TEMP 36.1; O2SAT 98
[2025-06-19] MEDS: traZODone 50 MG TAB PO (21:37)
[2025-06-19] MEDS: Atorvastatin 40 MG TAB PO (21:37)
[2025-06-20] MEDS: Levothyroxine 125 MCG TAB PO (06:06)
[2025-06-20] MEDS: Acetaminophen 500 MG TAB 1000 MG PO (06:30)
[2025-06-20 07:30] VITALS: BP 96/66; PULSE 68; RESP 16; O2SAT 98
[2025-06-20 07:35] VITALS: BP 100/68
[2025-06-20] MEDS: Diclofenac 1% Gel 100 GM TUBE TP (08:00)
[2025-06-20] MEDS: Fluticasone NASAL SPRAY 16 GM BTL NS (08:01)
[2025-06-20] MEDS: Ketoconazole 2% CREAM 15 GM TUBE TP (08:01)
[2025-06-20] MEDS: Folic Acid 1 MG TAB PO (08:02)
[2025-06-20] MEDS: Hydroxychloroquine 200 MG TAB PO ×2 (08:02→19:58)
[2025-06-20] MEDS: Multivitamin w/Minerals TAB 1 TAB PO (08:02)
[2025-06-20] MEDS: Apixaban 5 MG TAB PO ×2 (08:02→19:58)
[2025-06-20] MEDS: Potassium Chloride 20 MEQ TABCR PO (08:02)
[2025-06-20] MEDS: busPIRone 5 MG TAB PO ×2 (08:02→19:57)
[2025-06-20] MEDS: Torsemide 20 MG TAB PO ×2 (08:02→19:58)
[2025-06-20] MEDS: Pantoprazole 40 MG TABCR PO ×2 (08:02→16:24)
[2025-06-20] MEDS: guaiFENesin 600 MG TABCR PO ×2 (08:03→19:58)
[2025-06-20] MEDS: Normal Saline Flush 10 ML SYR IVP (08:03)
[2025-06-20] MEDS: Empaglifozin 25 MG TAB 12.5 MG PO (08:03)
[2025-06-20] MEDS: Metoprolol 12.5 MG TAB PO ×2 (08:08→19:57)
--- NOTE | 2025-06-20 09:08 | W.PC.ACHO ---
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 Keratoderma, acquired Impotence of organic origin Closed fracture of humerus Closed fracture of clavicle Erythematous condition Dyskinesia of esophagus Dermatophytosis of nail Chronic systolic (congestive) heart failure Celiac disease Anxiety disorder Dysphagia (Last Updated 08/21/22 @ 15:15 by Kayce Gee) Presence of other heart-valve replacement Most Recent Vital Signs Temperature 97.0 F L 06/19/25 19:19 Temperature Source Tympanic 06/19/25 19:19 Pulse 68 06/20/25 07:30 Pulse Rhythm Irregular 06/18/25 19:39 Respiratory Rate 16 06/20/25 07:30 Respiratory Effort Normal, Non-Labored 06/18/25 19:39 Respiratory Depth Normal 06/18/25 19:39 Respiratory Pattern Normal 06/18/25 19:39 Blood Pressure 100/68 06/20/25 07:35 Blood Pressure Mean 78 06/20/25 07:35 Pulse Oximetry 98 06/20/25 07:30 Oxygen Delivery Method Room Air 06/20/25 07:30 Oxygen Flow Rate 0 06/20/25 07:30 Pain Level 0 06/20/25 07:35 Allergies acetaminophen (From Percocet) Allergy (Unverified 05/01/21 15:55) cephalexin Allergy (Unverified 05/01/21 15:55) diphenhydramine (From Benadryl) Allergy (Verified 08/21/22 15:38) ibuprofen (From Advil) Allergy (Verified 08/21/22 15:38) latex Allergy (Unverified 05/01/21 16:01) lisinopril Allergy (Verified 08/21/22 15:37) lorazepam (From Ativan) Allergy (Unverified 05/01/21 16:01) metoclopramide (From Reglan) Allergy (Verified 08/21/22 15:37) oxazepam (From Serax) Allergy (Unverified 05/01/21 15:55) oxycodone (From Percocet) Allergy (Unverified 05/01/21 15:55) Penicillins Allergy (Verified 08/21/22 15:37) prochlorperazine (From Compazine) Allergy (Verified 08/21/22 15:38) rofecoxib (From Vioxx) Allergy (Unverified 05/01/21 15:55) zolpidem (From Ambien) Allergy (Unverified 05/01/21 15:55) amex Allergy (Uncoded 05/01/21 15:55) coapaxine Allergy (Uncoded 05/01/21 15:55) colabazet Allergy (Uncoded 05/01/21 15:55) Active Medications Generic Name Dose Route Start Last Admin Trade Name Freq PRN Reason Stop Dose Admin Acetaminophen 1,000 mg 06/18/25 22:05 06/20/25 06:30 Acetaminophen 500 Mg Tab PO 1,000 mg Q6H PRN PRN Administration Apixaban 5 mg 06/19/25 08:30 06/20/25 08:02 Apixaban 5 Mg Tab PO 5 mg BID LORI Administration Atorvastatin Calcium 40 mg 06/19/25 20:00 06/19/25 21:37 Atorvastatin 40 Mg Tab PO 40 mg QPM LORI Administration Buspirone HCl 5 mg 06/19/25 08:30 06/20/25 08:02 Buspirone 5 Mg Tab PO 5 mg BID LORI Administration Diclofenac Sodium 0 gm 06/19/25 10:00 06/20/25 08:00 Diclofenac 1% Gel 100 Gm Tube TP 1 applic DAILY LORI Administration Empagliflozin 12.5 mg 06/19/25 08:30 06/20/25 08:03 Empaglifozin 25 Mg Tab PO 12.5 mg DAILY LORI Administration Fluticasone Propionate 0 gm 06/20/25 08:30 06/20/25 08:01 Fluticasone Nasal [place] 16 Gm Btl NS 2 spray DAILY LORI Administration Folic Acid 1 mg 06/19/25 08:30 06/20/25 08:02 Folic Acid 1 Mg Tab PO 1 mg DAILY LORI Administration Guaifenesin 600 mg 06/19/25 08:30 06/20/25 08:03 Guaifenesin 600 Mg Tabcr PO 600 mg BID LORI Administration Hydroxychloroquine Sulfate 200 mg 06/19/25 08:30 06/20/25 08:02 Hydroxychloroquine 200 Mg Tab PO 200 mg BID LORI Administration Iron/Minerals/Multivitamins 1 tab 06/19/25 08:30 06/20/25 08:02 Multivitamin W/Minerals Tab PO 1 tab DAILY LORI Administration Ketoconazole 0 gm 06/19/25 08:30 06/20/25 08:01 Ketoconazole 2% Cream 15 Gm Tube TP 1 applic DAILY LORI Administration Levothyroxine Sodium 125 mcg 06/19/25 06:00 06/20/25 06:06 Levothyroxine 125 Mcg Tab PO 125 mcg 0600 LORI Administration Metoprolol Tartrate 12.5 mg 06/19/25 08:30 06/20/25 08:08 Metoprolol 12.5 Mg Tab PO 12.5 mg BID LORI Administration Pantoprazole Sodium 40 mg 06/19/25 07:30 06/20/25 08:02 Pantoprazole 40 Mg Tabcr PO 40 mg BID AC LORI Administration Potassium Chloride 20 meq 06/19/25 08:30 06/20/25 08:02 Potassium Chloride 20 Meq Tabcr PO 20 meq DAILY LORI Administration Psyllium Hydrophilic Mucilloid 1 each 06/19/25 10:00 06/19/25 21:39 Psyllium Pkt PO 1 each 1000,2200 LORI Administration Sodium Chloride 0 ml 06/19/25 03:22 06/20/25 08:03 Normal Saline Flush 10 Ml Syr IVP 20 ml PRN PRN Administration Torsemide 20 mg 06/19/25 08:30 06/20/25 08:02 Torsemide 20 Mg Tab PO 20 mg BID LORI Administration Trazodone HCl 50 mg 06/18/25 22:30 06/19/25 21:37 Trazodone 50 Mg Tab PO 50 mg HS LORI Administration IV IV Catheter Type [Left Upper Saline Lock arm] Intake and Output - 24 Hour Total 06/18/25 thru 06/20/25 07:28 Intake Total 278 Output Total 3590 Balance -3312 Weight 138 lb 10.732 oz Intake: IV 20 Oral 258 Output: Urine 3590 Other: Urine Color Yellow Urine Appearance Clear Urine Odor Normal Comment Patient was incontinent in his underwear. Patient is wearing a brief currently. Stool Size Large Stool Characteristics Formed [place] Falls Risk Assessment History of Falls Previous History 06/18/25 19:39 Contributing Factors No Factors,Impairments 06/18/25 19:39 Ambulatory Aids Uses ambulatory device 06/18/25 19:39 Tubes/Lines W/no contributing factors 06/18/25 19:39 Fall Total Score 43 06/18/25 19:39 Level of Risk Moderate Risk 06/18/25 19:39 Problems (Last Updated 08/21/22 @ 15:15 by Kayce Gee) COPD (chronic obstructive pulmonary disease) (Chronic) Iron deficiency (Acute) Dyslipidemia (Acute) Notes 06/19/25 08:23 Respiratory by Marly Ball Pt wears 2-2.5L O2 at night, has home concentrator through [employer]- concentrator not here at hospital Initialized on 06/19/25 08:23 - END OF NOTE v v v v v v v v v Sending and/or Receiving Nurses: Please use comment section below to note any information pertinent to the patient hand-off not included above. Information / Comments: [place] [facility] [place] and [place] physical re[place]. Patient is alert and oriented, controlled afib rate 90s-115s, last BM 06/17/25, IV upper left arm. No problem swallowing pills, food, or liquid. Report received from: [facility] [place]Ivana
[2025-06-20] MEDS: Psyllium PKT 1 EACH PO ×2 (09:49→19:58)
--- NOTE | 2025-06-20 11:00 | PT.INTREAT ---
PT Notes Visit Reasons: TAVR/Deconditioning Physical Therapy Inpatient Treatment Note Date: 06/20/2025 Precautions: Fall. Standard. Activity as tolerated. SNHL. Subjective: Agreeable to today's session. Wants to know if he could get elastic shoelaces for his brown sneakers. Highly motivated to participate. Objective: General Observation: Acquired deformity of R UE from a fall off a roof. IV acess through L UE. Mental Status: Alert and oriented as to person, place, time, and purpose. Able to pay attention, focus, and respond appropriately. Pain: None reported during session Bed Mobility/Transfers: Minimal cueing provided for use of B hands as needed for support, movement sequence, AD management, and posture to reduce fall risk and minimize pain report Sit to stand stand by assist Stand to sit stand by assist Bed to reclining stand by assist Reclining chair to bed stand by assist Gait: 300 feet of lecel surface ambulation without an assistive device but with contact guard assist to stand by assist with minimal path deviation and slowed directional change. Step height and length decreased. Arm swing in B sides decreased. Near LOB x 2 needing contact guard assist for safety. Mild SOB. THERA EX; Worked on increasing step height and length as well as mediolateral stability performing side stepping x 12 steps to the R and L x 3 and toe taps using a 12-inch step height with 2 lb ankle weight with good response. Stand by to contact guard assist provided. Balance: Static Sitting: Normal Dynamic Sitting: Normal Static Standing: Fair Dynamic Standing: Fair Assessment: Highly motivated to get better with his balance skills/awareness. Still demonstrating impairment in balance and B LE strength with near loss of balance x 3 needing conatct guard assist of PT. He is supervision in the room and hallway with front-wheeled walker. Plan of Care/Treatment Plan: 1-2x/day, 7 days/week x 1 week. Plan of care has been reviewed with the EMERGENCY ROOM REGISTERED NURSE providing the service under Physical Therapy direction. Initiate Physical Therapy intervention for pain management as needed, strengthening, bed mobility, transfers, gait, stairs, balance training, and use of assistive device. DISCHARGE RECOMMENDATIONS: PT TREATMENT CODE/TIME: 57556 x 34 minutes for 2 units (11:00-11:34).
--- NOTE | 2025-06-20 13:32 | PTTR_ITS ---
PT Notes Visit Reasons: TAVR/Deconditioning Date: 06/20/2025 PRECAUTIONS: Standard Fall, Activity as tolerated. SUBJECTIVE: Pt in recliner when approached for therapy this afternoon, reports his neck is feeling tight and achy, blames position in recliner for the discomfort, reports he needs to go use the toilet before doing therapy. VITALS: monitored by nursing Therapeutic Activities [id number]: Direct one-on-one instruction in dynamic activities to improve functional performance. ?? BED MOBILITY/TRANSFERS? Rolling L/R: independent Supine-sit: ?independent ? Sit-supine: ?independent ? Sit-stand: ? SBA? Stand-sit: ??SBA ? Bed-Chair:? independent? Chair-bed: independent Toilet mobility: independent Provided skilled cues and instruction on performance and technique throughout. Gait Training 38200: Direct one-on-one instruction and skilled instruction in: Movement sequencing Turning and movement with proper form Provided instruction in gait pattern Patient education regarding pacing and breathing techniques to maximize activity tolerance? GAIT? Assistive Device: ?none? Weight bearing: FWB Assist: ?SBA? Distance:??50' x 2, 300' x 1 ? Deviation: slow andre, stoop forward, low step height and short step length? STAIRS:? Bilateral handrail step over step, 4 x 6, 6 x 4 Supervision? Neuromuscular Re-education [id number]: Activities that facilitate re-education of movement balance, posture, coordination, and proprioception or kinesthetic sense, requiring skilled tactile and verbal cues Exercises/techniques: Step and reach [id number] Side step and reach [id number] Static standing with NBOS 1min Static standing with NBOS EC 1min ASSESSMENT:?Pt received some stretching for neck, TPR on the cervical paraspinals and periscapular muscles to help with neck tension with positive results. PLAN: Continue with balance training, global strengthening and general conditi oning for improved safety, mobility and activity tolerance until pt is ready for DC. TREATMENT CODE/TIME: [id number] 25mins (1:05-1:30 pm)
[2025-06-20] MEDS: Docusate Sodium 100 MG CAP PO (16:24)
[2025-06-20] MEDS: Polyethylene Glycol 3350 17 GM PACKET PO (16:24)
--- NOTE | 2025-06-20 16:46 | PHA.REVIEW2 ---
Pharmacy Admission Review Admission Clinical Review Admission Pharmacy Review: Iron deficiency (Acute) Dyslipidemia (Acute) acetaminophen (From Percocet) Allergy (Unverified 05/01/21 15:55) cephalexin Allergy (Unverified 05/01/21 15:55) diphenhydramine (From Benadryl) Allergy (Verified 08/21/22 15:38) ibuprofen (From Advil) Allergy (Verified 08/21/22 15:38) latex Allergy (Unverified 05/01/21 16:01) lisinopril Allergy (Verified 08/21/22 15:37) lorazepam (From Ativan) Allergy (Unverified 05/01/21 16:01) metoclopramide (From Reglan) Allergy (Verified 08/21/22 15:37) oxazepam (From Serax) Allergy (Unverified 05/01/21 15:55) oxycodone (From Percocet) Allergy (Unverified 05/01/21 15:55) Penicillins Allergy (Verified 08/21/22 15:37) prochlorperazine (From Compazine) Allergy (Verified 08/21/22 15:38) rofecoxib (From Vioxx) Allergy (Unverified 05/01/21 15:55) zolpidem (From Ambien) Allergy (Unverified 05/01/21 15:55) amex Allergy (Uncoded 05/01/21 15:55) coapaxine Allergy (Uncoded 05/01/21 15:55) colabazet Allergy (Uncoded 05/01/21 15:55) Resuscitation Status Full Code Height 5 ft 7 in Weight 62.9 kg Pharmacy Admission Review Renal Dosing Renal Dosing: BUN 48 mg/dL (7-18) H 06/18/25 23:53 Creatinine 1.5 mg/dL (0.70-1.30) H 06/18/25 23:53 Medications needing adjustments: Reviewed (CrCl 32 mL/min) List of meds needing interventions: Current medications are okay Anticoagulation Anticoagulation: Hgb 10.2 g/dL (13.5-17.5) L 06/18/25 23:53 Hct 30.4 % (40.0-50.0) L 06/18/25 23:53 Plt Count 49 10^3/uL (130-400) L 06/18/25 23:53 Creatinine 1.5 mg/dL (0.70-1.30) H 06/18/25 23:53 DVT Prophylaxis: Reviewed Medications: Apixaban (5mg PO BID) Relevant Labs Relevant Labs: Sodium 134 mmol/L (136-145) L 06/18/25 23:53 Potassium 4.1 mmol/L (3.5-5.1) 06/18/25 23:53 Chloride 97 mmol/L (98-107) L 06/18/25 23:53 Electrolytes, C-Reactive P, ESR: Reviewed (No new labs for today) Cardiac Review BP, HR, EF%: Reviewed (BP and HR WNL) List meds needing interventions: Has order for metoprolol 12.5mg BID and torsemide 20mg BID QTc Review QTc: Reviewed (No EKG on file) IV to PO Switch IV Medications: Reviewed Home Meds Home Med List reviewed: Reviewed Relevent Home Meds Not ordered & why?: ferrous sulfate and triamcinolone cream Current Meds Current Medication Order Review: Reviewed
[2025-06-20 19:15] VITALS: BP 103/50; PULSE 62; RESP 18; TEMP 36.3; O2SAT 97
[2025-06-20] MEDS: traZODone 50 MG TAB PO (19:57)
[2025-06-20] MEDS: Atorvastatin 40 MG TAB PO (19:58)
[2025-06-21] MEDS: Levothyroxine 125 MCG TAB PO (04:41)
[2025-06-21 07:44] VITALS: BP 102/85; PULSE 60; RESP 18; TEMP 36.4; O2SAT 97
[2025-06-21] MEDS: Multivitamin w/Minerals TAB 1 TAB PO (09:30)
[2025-06-21] MEDS: Metoprolol 12.5 MG TAB PO ×2 (09:30→20:11)
[2025-06-21] MEDS: Empaglifozin 25 MG TAB 12.5 MG PO (09:30)
[2025-06-21] MEDS: Folic Acid 1 MG TAB PO (09:31)
[2025-06-21] MEDS: Apixaban 5 MG TAB PO ×2 (09:31→20:11)
[2025-06-21] MEDS: busPIRone 5 MG TAB PO ×2 (09:31→20:12)
[2025-06-21] MEDS: Pantoprazole 40 MG TABCR PO ×2 (09:31→18:49)
[2025-06-21] MEDS: guaiFENesin 600 MG TABCR PO ×2 (09:31→20:11)
[2025-06-21] MEDS: Hydroxychloroquine 200 MG TAB PO ×2 (09:31→20:11)
[2025-06-21] MEDS: Torsemide 20 MG TAB PO ×2 (09:32→18:47)
[2025-06-21] MEDS: Psyllium PKT 1 EACH PO ×2 (09:32→21:29)
[2025-06-21] MEDS: Potassium Chloride 20 MEQ TABCR PO (09:32)
--- NOTE | 2025-06-21 11:49 | PT.INTREAT ---
PT Notes Visit Reasons: TAVR/Deconditioning Date: 06/21/2025 PRECAUTIONS: Standard Fall, Activity as tolerated. SUBJECTIVE: Pt in recliner when approached for therapy this afternoon, feeling much better looking forward to go with therapist for session. VITALS: monitored by nursing Therapeutic Activities 68182: Direct one-on-one instruction in dynamic activities to improve functional performance. ?? BED MOBILITY/TRANSFERS? Rolling L/R: independent Supine-sit: ?independent ? Sit-supine: ?independent ? Sit-stand: ? independent? Stand-sit: ??independent ? Bed-Chair:? independent? Chair-bed: independent Toilet mobility: independent Provided skilled cues and instruction on performance and technique throughout. Gait Training 20018: Direct one-on-one instruction and skilled instruction in: Movement sequencing Turning and movement with proper form Provided instruction in gait pattern Patient education regarding pacing and breathing techniques to maximize activity tolerance? GAIT? Assistive Device: ?none? Weight bearing: FWB Assist: ?SBA? Distance:??300' x 3 ? Deviation: slow andre, stoop forward, low step height and short step length? STAIRS:? facility stairs 14 steps x 2 flights up/down 1handrail on LUE, step over step SBA? ASSESSMENT:?Pt did not complain of neck pain today, happy with being able to go up and down stairs. PLAN: Continue with balance training, global strengthening and general conditioning for improved safety, mobility and activity tolerance until pt is ready for DC. TREATMENT CODE/TIME: [id number] 25mins (10:21-10:56 am)
[2025-06-21] MEDS: Diclofenac 1% Gel 100 GM TUBE TP (15:23)
[2025-06-21] MEDS: Fluticasone NASAL SPRAY 16 GM BTL NS (15:24)
[2025-06-21] MEDS: Ketoconazole 2% CREAM 15 GM TUBE TP (15:24)
--- NOTE | 2025-06-21 17:38 | CMPROGNOTE_ITS ---
Date of service: 06/21/25 Time of Service: 17:38 Care Management Progress Note Progress Note Text Progress Note Text: Caden has been doing really well. He has been working with PT and OT, and has been seen walking the halls with nursing staff. He says he is comfortable. Would like to be pushed a little bit harder by PT and OT. Caden's daughter, Leandra, was in to visit today. CM spoke with his CM at the NH today, Rosa Vazquez. She stated that Caden currently has no services, but he is eligible for home tele-health, a health aid and a homemaker. Caden is going to think about this. Discharge Potential Discharge Needs: PCP F/U Appt Anticipated Barriers to Discharge: None Identified Patient/Family Education Needs: Review discharge instructions, discuss Ask Me Three Transportation: Private vehicle Plan: Caden will discharge home with new services of [facility]. [facility]. Caden will f/u with his PCP and with his cardiology team at [facility]. He will transport home in a private vehicle with one of his children. CM will continue to follow. Social Determinants of Health Screening Will the Patient Participate in the Screening?: Declined to provide Anticipated HH Services Anticipated HH Services at [facility] ([facility]) Services Needed (PT/OT).
[2025-06-21] MEDS: Atorvastatin 40 MG TAB PO (20:11)
[2025-06-21] MEDS: traZODone 50 MG TAB PO (20:11)
[2025-06-21 20:28] VITALS: BP 110/70; PULSE 62; RESP 20; TEMP 36.1; O2SAT 96
[2025-06-22] MEDS: Levothyroxine 125 MCG TAB PO (05:45)
[2025-06-22 07:31] VITALS: BP 98/61; PULSE 74; RESP 18; TEMP 36.8; O2SAT 97
--- NOTE | 2025-06-22 08:35 | PT.INTREAT ---
PT Notes Visit Reasons: TAVR/Deconditioning Physical Therapy Inpatient Treatment Note Date: 06/22/2025 Precautions: Fall. Standard. Activity as tolerated. SNHL. Subjective: Wants to do more. Getting bored not doing anything here. Learn new ways to put on shirt and work with buttons which OT Levonluisa was made aware after. Highly motivated to participate. Objective: General Observation: Acquired deformity of R UE from a fall off a roof. IV acess through L UE. Mental Status: Alert and oriented as to person, place, time, and purpose. Able to pay attention, focus, and respond appropriately. Pain: None reported during session Bed Mobility/Transfers: Minimal cueing provided for use of B hands as needed for support, movement sequence, AD management, and posture to reduce fall risk and minimize pain report Sit to stand independent Stand to sit independent Bed to reclining independent Reclining chair to bed independent Gait: 600 feet of level surface ambulation without an assistive device with supervision only. Minimal path deviation and slowed directional change. Step height and length increasing. Arm swing on R sides decreased. No LOB nor near LOB today. Emphasis given to safe step turns, deceleration, and low angle of turn to facilitate safe turning. THERA ACT: Activities designed to improve balance awareness and postural control during dynamic activities as follows: Backing up 12 steps with with slow reciporal steps x 3 sets while close to wall outside PT gym. Occasional minimal tactile cue given to upper back for more controlled posterior weight shift Side stepping to R x 12 steps for 3 sets Side stepping to L x 12 steps for 3 sets Balance: Static Sitting: Normal Dynamic Sitting: Normal Static Standing: Good Dynamic Standing: Fair Assessment: Now made independent inside room without an assistive device, supervision in med surg broadwayway. Faciltated safe directional changes working on breaking forces, body rotation, and stepping. Also emphasized balance posterior balance awareness over stable surface (med surg floor) Plan of Care/Treatment Plan: 1-2x/day, 7 days/week x 1 week. Progress balance over non-stable/soft floor surface to improve balance awareness and reduce fall risk. DISCHARGE RECOMMENDATIONS: PT TREATMENT CODE/TIME: 55400 x 39 minutes for 3 units (0835-8:45 and (:04-9:33).
[2025-06-22] MEDS: Hydroxychloroquine 200 MG TAB PO ×2 (09:57→20:39)
[2025-06-22] MEDS: Psyllium PKT 1 EACH PO ×2 (09:57→20:39)
[2025-06-22] MEDS: Multivitamin w/Minerals TAB 1 TAB PO (09:57)
[2025-06-22] MEDS: Empaglifozin 25 MG TAB 12.5 MG PO (09:57)
[2025-06-22] MEDS: Apixaban 5 MG TAB PO ×2 (09:58→20:39)
[2025-06-22] MEDS: guaiFENesin 600 MG TABCR PO ×2 (09:58→20:39)
[2025-06-22] MEDS: Folic Acid 1 MG TAB PO (09:58)
[2025-06-22] MEDS: Pantoprazole 40 MG TABCR PO ×2 (09:58→17:36)
[2025-06-22] MEDS: busPIRone 5 MG TAB PO ×2 (09:58→20:39)
[2025-06-22] MEDS: Potassium Chloride 20 MEQ TABCR PO (09:59)
[2025-06-22] MEDS: Metoprolol 12.5 MG TAB PO (10:15)
[2025-06-22] MEDS: Diclofenac 1% Gel 100 GM TUBE TP (10:16)
[2025-06-22] MEDS: Ketoconazole 2% CREAM 15 GM TUBE TP (10:16)
[2025-06-22] MEDS: Fluticasone NASAL SPRAY 16 GM BTL NS (10:16)
[2025-06-22] MEDS: Torsemide 20 MG TAB PO ×2 (10:19→17:36)
--- NOTE | 2025-06-22 14:33 | OTTR_ITS ---
Occupational Therapy Notes Occupational Therapy Inpatient Treatment Note Date: 06/22/25 PRECAUTIONS: Fall, Standard, Full SUBJECTIVE: Pt was sitting in the chair when OT arrived. He notes that he is agreeable to working on his ADLs today. OBJECTIVE: PAIN:no c/o pain FUNCTIONAL MOBILITY Sit-stand: (I) Stand-sit: (I) DRESSING: seated in chair, mod vc throughout Upper Extremity: (I) with (R) UE in first and out last with ideal technique. Pt was able to tolerate this well. Still decreased fine motor which limits his snapping. Lower Extremity: Modified pts laces on his shoes to be tied behind the tongue of the shoe which he is able to (I) don and doff EATING: (I) ASSESSMENT: Pt is making progress in regards to his ADLs. He is still progressing with his gross and fine motor strength and with his dressing techniques. He has adaptive equipment in his room which he is tolerated well. Overall the equipment should be utilized to (A) with pts safety and build routines for his home setting (I). TREATMENT CODES/TIME: 50998, 22 minutes Lydia May OTR/L [facility] [place], [place]
--- NOTE | 2025-06-22 14:38 | PT.INTREAT ---
PT Notes Visit Reasons: TAVR/Deconditioning Date: 06/22/2025 PRECAUTIONS: Standard Fall, Activity as tolerated. SUBJECTIVE: Pt in recliner when approached for therapy this afternoon, pt reports he would like to participate with therapy session but would have to use the toilet prior to going with this therapist. VITALS: monitored by nursing Therapeutic Activities 28210: Direct one-on-one instruction in dynamic activities to improve functional performance. ?? BED MOBILITY/TRANSFERS? Rolling L/R: independent Supine-sit: ?independent ? Sit-supine: ?independent ? Sit-stand: ? independent? Stand-sit: ??independent ? Bed-Chair:? independent? Chair-bed: independent Toilet mobility: independent Provided skilled cues and instruction on performance and technique throughout. Gait Training 63652: Direct one-on-one instruction and skilled instruction in: Movement sequencing Turning and movement with proper form Provided instruction in gait pattern Patient education regarding pacing and breathing techniques to maximize activity tolerance? GAIT? Assistive Device: ?none? Weight bearing: FWB Assist: ?SBA? Distance:??300' x 3 ? with 2lbs ankle weights? Deviation: slow andre, stoop forward, low step height and short step length? STAIRS:? facility stairs 14 steps x 2 flights up/down 1handrail on LUE with 2lbs ankle weights, step over step SBA? ASSESSMENT:?Pt tolerated activity well, pt released to being independent inside room, will walk with STATISTICAL REPORTING ANALYST when walking the hallway. PLAN: Continue with balance training, global strengthening and general conditioning for improved safety, mobility and activity tolerance until pt is ready for DC. TREATMENT CODE/TIME: [id number] 25mins (10:21-10:56 am)
--- NOTE | 2025-06-22 15:45 | CMPROGNOTE_ITS ---
Date of service: 06/22/25 Time of Service: 15:45 Care Management Progress Note Progress Note Text Progress Note Text: Caden is doing great. He is now independent in his room, per PT. Caden did stairs today, in the stair well. He thinks he did about 20 steps. Caden walked with CM today. He appeared steady, but seemed a little in a caputo and was encouraged to slow down a bit. He stated that he sometimes feels like he is swaying, but this was not noticed by CM. CM spoke with Caden regarding the conversation CM had with [facility] yesterday. Caden is very willing to accept home tele-health, nurse practitioner home assessments and homemaker services through the [facility]. CM called Rosa Vazquez at the [facility]- Caden's manager of sustainability- and notified her of this via . Caden is also willing to accept PT/OT and RN for med management, through [facility]. Caden was made aware that he will likely be discharged home on Wednesday with these services. Caden had some concerns about discharge next week, as most of his children will be away on vacation. CM let Caden know that she would call his children, and make them aware of the discharge plan. CM spoke with both children who are on Caden's [employer] and they were both fully updated on the plan. Caden will still be living alone, but 2 of his children will be available to help him if needed. Caden is going to ask his son to bring in his pill bottles over the weekend. C[facility] uses the [facility] in [place] for his pharmacy, which is mail order. We need to assure that Caden will have available medications. Discharge Potential Discharge Needs: PCP F/U Appt and Other (cardiology f/u) Anticipated Barriers to Discharge: None Identified Patient/Family Education Needs: Review discharge instructions, discuss Ask Me Three Transportation: Private vehicle (Son, Elia, will pickle water pump operator on day of discharge after dinner. this is best possible option) Plan: Anticipate that Caden will discharge home with new services of RN, PT/OT through [facility]. He will have health-aid, housekeeping and tele-health through the [facility]. Caden will f/u with his PCP and his head cook and continue per his plan of care. He will transport home in a private vehicle with his son. CM will continue to follow. Social Determinants of Health Screening Will the Patient Participate in the Screening?: Declined to provide
[2025-06-22 19:18] VITALS: BP 88/66; PULSE 94; RESP 22; TEMP 36.6; O2SAT 97
[2025-06-22] MEDS: traZODone 50 MG TAB PO (20:39)
[2025-06-22] MEDS: Atorvastatin 40 MG TAB PO (20:39)
[2025-06-22 21:10] VITALS: BP 98/70
[2025-06-23] MEDS: Levothyroxine 125 MCG TAB PO (06:02)
[2025-06-23 07:08] VITALS: BP 101/56; PULSE 74; RESP 16; TEMP 36.4; O2SAT 96
[2025-06-23] MEDS: Multivitamin w/Minerals TAB 1 TAB PO (07:47)
[2025-06-23] MEDS: guaiFENesin 600 MG TABCR PO ×2 (07:47→20:23)
[2025-06-23] MEDS: Apixaban 5 MG TAB PO ×2 (07:47→20:23)
[2025-06-23] MEDS: Empaglifozin 25 MG TAB 12.5 MG PO (07:47)
[2025-06-23] MEDS: busPIRone 5 MG TAB PO ×2 (07:47→20:23)
[2025-06-23] MEDS: Metoprolol 12.5 MG TAB PO (07:47)
[2025-06-23] MEDS: Hydroxychloroquine 200 MG TAB PO ×2 (07:48→20:23)
[2025-06-23] MEDS: Potassium Chloride 20 MEQ TABCR PO (07:48)
[2025-06-23] MEDS: Pantoprazole 40 MG TABCR PO ×2 (07:48→17:26)
[2025-06-23] MEDS: Folic Acid 1 MG TAB PO (07:48)
[2025-06-23] MEDS: Torsemide 20 MG TAB PO ×2 (07:48→17:26)
[2025-06-23] MEDS: Diclofenac 1% Gel 100 GM TUBE TP (07:49)
[2025-06-23] MEDS: Ketoconazole 2% CREAM 15 GM TUBE TP (07:49)
[2025-06-23] MEDS: Normal Saline Flush 10 ML SYR IVP (07:57)
[2025-06-23] MEDS: Fluticasone NASAL SPRAY 16 GM BTL NS (08:32)
[2025-06-23] MEDS: Psyllium PKT 1 EACH PO ×2 (11:01→22:30)
--- NOTE | 2025-06-23 11:07 | PT.INTREAT ---
PT Notes Visit Reasons: TAVR/Deconditioning Inpatient Physical Therapy Treatment Note [facility] Date: 06/23/25 PRECAUTIONS: standard SUBJECTIVE: Caden states that he's had a shower this morning and has been walking with nursing. Feels as though he's doing pretty well, but does think his balance is a little off after being laid up. OBJECTIVE: ? PAIN: bilat knee pain at baseline VITALS: HR monitored throughout session, and remained between 65-72 throughout Therapeutic Activities (94878a8): Direct one-on-one instruction in dynamic activities to improve functional performance. ? BED MOBILITY/TRANSFERS? Supine-sit: independent? Sit-supine: independent? Sit-stand: independent? Stand-sit: independent? Bed-Chair: independent? Chair-bed: independent? GAIT? Assistive Device: [none ? Weight bearing: full Assist: supervision ? Distance:? 300' ? Deviation: mild path deviation on 2 occasions, without need for assistance for recovery ? Neuromuscular Re-education (87260v9): Activities that facilitate re-education of movement balance, posture, coordination, and proprioception or kinesthetic sense, requiring skilled tactile and verbal cues Peralta Balance Test: 45/56 (low risk for falls) ? Exercises/techniques: Instructed in the following balance activities, using intermittent support to rail as needed. CGA throughout. tandem stance 30 seconds each side Lateral walk 20 feet x 2 Standing hip PREs, 10 times each direction Heel raises 10 times Squats 10 times with upper extremity support rail Static standing with feet together, eyes closed, 30 seconds x 2 with CGA Step up exchange to 6 inch step with bilateral rails, max cues, 10 times each sit-stand 10x, no hands, standard height chair ? ASSESSMENT:? Walking frequently with nursing. Does have some minor balance impairments, with Peralta Score 45/56 (not indicating significant risk for falls or need for assistive device); initiated balance retraining activities today, which patient tolerated very well. Encourage continued walks with nursing. PLAN: Continue PT intervention for improved safety and activity tolerance. TREATMENT CODE/TIME: [id number] ([id number]) DISCHARGE RECOMMENDATION: Home with HH PT
--- NOTE | 2025-06-23 14:13 | PT.INTREAT ---
PT Notes Visit Reasons: TAVR/Deconditioning Inpatient Physical Therapy Treatment Note [facility] Date: 06/23/25 (pm) PRECAUTIONS: standard SUBJECTIVE: Caden states that he feels good about doing a little more. He's agreeable to second PT session. OBJECTIVE: ? PAIN: bilat knee pain at baseline VITALS: HR monitored throughout session, and remained between 65-72 throughout Therapeutic Activities (14181l0): Direct one-on-one instruction in dynamic activities to improve functional performance. ? BED MOBILITY/TRANSFERS? Supine-sit: independent? Sit-supine: independent? Sit-stand: independent? Stand-sit: independent? Bed-Chair: independent? Chair-bed: independent? Therapeutic Exercises (92217c6): GAIT? (for improved activity tolerance)? Assistive Device: [none ? Weight bearing: full Assist: supervision ? Distance:? 300' ?x 2 ? Deviation: mild path deviation on 2 occasions, without need for assistance for recovery ? NuStep 5 minutes, L0. Performed with LUE and bilat LEs due to RUE discomfort. Requires mod A for tranfer on/off equipment, and cues for completion. ? Neuromuscular Re-education (24529h9): Activities that facilitate re-education of movement balance, posture, coordination, and proprioception or kinesthetic sense, requiring skilled tactile and verbal cue ? Exercises/techniques: Instructed in the following balance activities, using intermittent support to rail as needed. CGA throughout. tandem walk, 6'x6, forward and back, unilateral UE support, CGA Standing hip PREs, 10 times each direction Heel raises 10 times Static standing with feet together, eyes closed, 30 seconds x 2 with CGA Step up exchange to 6 inch step with bilateral rails, max cues, 10 times each 90* turns 10x each direction, max cues for sequencing and foot clearance ? ASSESSMENT:? Walking frequently with nursing. Does have some minor balance impairments, with Peralta Score 45/56 (not indicating significant risk for falls or need for assistive device); initiated balance retraining activities today, which patient tolerated very well. Encourage continued walks with nursing and will continue progressing balance retraining as tolerated. PLAN: Continue PT intervention for improved safety and activity tolerance. TREATMENT CODE/TIME: [id number] (21779w7, 46320n8) DISCHARGE RECOMMENDATION: Home with HH PT
[2025-06-23] MEDS: Docusate Sodium 100 MG CAP PO ×2 (14:55→20:27)
[2025-06-23] MEDS: Polyethylene Glycol 3350 17 GM PACKET PO (15:08)
[2025-06-23 19:15] VITALS: BP 95/65; PULSE 59; RESP 15; TEMP 36.6; O2SAT 98
[2025-06-23] MEDS: traZODone 50 MG TAB PO (20:23)
[2025-06-23] MEDS: Atorvastatin 40 MG TAB PO (20:25)
[2025-06-24] MEDS: Levothyroxine 125 MCG TAB PO (05:56)
[2025-06-24 07:17] VITALS: BP 106/63; PULSE 85; RESP 16; TEMP 36.4; O2SAT 98
[2025-06-24] MEDS: Potassium Chloride 20 MEQ TABCR PO (08:33)
[2025-06-24] MEDS: Torsemide 20 MG TAB PO ×2 (08:33→16:28)
[2025-06-24] MEDS: Hydroxychloroquine 200 MG TAB PO ×2 (08:33→20:00)
[2025-06-24] MEDS: Apixaban 5 MG TAB PO ×2 (08:33→20:01)
[2025-06-24] MEDS: guaiFENesin 600 MG TABCR PO ×2 (08:33→20:01)
[2025-06-24] MEDS: Docusate Sodium 100 MG CAP PO ×3 (08:33→20:01)
[2025-06-24] MEDS: Multivitamin w/Minerals TAB 1 TAB PO (08:33)
[2025-06-24] MEDS: Empaglifozin 25 MG TAB PO (08:33)
[2025-06-24] MEDS: Metoprolol CR 25 MG TABCR PO (08:33)
[2025-06-24] MEDS: Folic Acid 1 MG TAB PO (08:33)
[2025-06-24] MEDS: busPIRone 5 MG TAB PO ×2 (08:34→20:01)
[2025-06-24] MEDS: Pantoprazole 40 MG TABCR PO ×2 (08:34→15:58)
[2025-06-24] MEDS: Fluticasone NASAL SPRAY 16 GM BTL NS (08:40)
[2025-06-24] MEDS: Ketoconazole 2% CREAM 15 GM TUBE TP (08:41)
[2025-06-24] MEDS: Diclofenac 1% Gel 100 GM TUBE TP (08:42)
--- NOTE | 2025-06-24 09:29 | PT.INTREAT ---
PT Notes Visit Reasons: TAVR/Deconditioning Inpatient Physical Therapy Treatment Note [facility] Date: 06/24/25 PRECAUTIONS: standard SUBJECTIVE: Caden reports some muscle soreness after yesterlissette's PT session. He's anxious to participate again today. OBJECTIVE: ? Therapeutic Activities (16884a3): Direct one-on-one instruction in dynamic activities to improve functional performance. ? BED MOBILITY/TRANSFERS? Supine-sit: independent? Sit-supine: independent? Sit-stand: independent? Stand-sit: independent? Bed-Chair: independent? Chair-bed: independent? Therapeutic Exercises (11264z7): GAIT? (for improved activity tolerance)? Assistive Device: [none ? Weight bearing: full Assist: supervision ? Distance:? 300' ?x 1 ? Deviation: mild path deviation ? Neuromuscular Re-education (14855w4): Activities that facilitate re-education of movement balance, posture, coordination, and proprioception or kinesthetic sense, requiring skilled tactile and verbal cue ? Exercises/techniques: Instructed in the following balance activities, using intermittent support to rail as needed. CGA throughout. tandem walk, 6'x6, forward and back, unilateral UE support, CGA Heel raises 10 times Static standing with feet together, eyes closed, 30 seconds x 2 with CGA tandem stance, 30 seconds each with CGA and unilateral UE support Standing hip PREs, 10 times each direction - performs AB only, after which he begins feeling shaky. D/C exercise at that time. VITALS: During session, reports feeling shaky, without dizziness or light headedness. BP found to be 94/55, HR 75. Assisted to sitting position and monitored for 5 minutes. Continues to feel shaky, without modification in symptoms. BP found to be 103/65, HR 88. HR monitored via pulse oximeter x 5 minutes, ranging from 58-97. Assisted back to room and remained sitting up to chair. Nursing alerted. ? ASSESSMENT:? Walking frequently with nursing. Does have some minor balance impairments, with Peralta Score 45/56 (not indicating significant risk for falls or need for assistive device); initiated balance retraining activities yesterday. Decreased tolerance today, with low BP during treatment session. Nursing alerted. PLAN: Continue PT intervention for improved safety and activity tolerance. TREATMENT CODE/TIME: [id number] (18054r7) DISCHARGE RECOMMENDATION: Home with PT
[2025-06-24] MEDS: Psyllium PKT 1 EACH PO ×2 (10:13→22:00)
--- NOTE | 2025-06-24 12:11 | PT.INTREAT ---
PT Notes Visit Reasons: TAVR/Deconditioning Inpatient Physical Therapy Treatment Note [facility] Date: 06/24/25 (second session) PRECAUTIONS: standard SUBJECTIVE: Caden states that he has not had any further episodes of shakiness since this am. He's agreeable to a second PT session. OBJECTIVE: ? Therapeutic Activities (70912r4): Direct one-on-one instruction in dynamic activities to improve functional performance. ? BED MOBILITY/TRANSFERS? Supine-sit: independent? Sit-supine: independent? Sit-stand: independent? Stand-sit: independent? Bed-Chair: independent? Chair-bed: independent? Neuromuscular Re-education (83494b8): Activities that facilitate re-education of movement balance, posture, coordination, and proprioception or kinesthetic sense, requiring skilled tactile and verbal cue ? Exercises/techniques: Instructed in the following balance activities, using intermittent support to rail as needed. CGA throughout. carioca 6'x2, max verbal and visual cues step ups 10x each, CGA and no UE support sit-stand 10x Heel raises 10 times Static standing with feet together, eyes closed, 30 seconds x 2 with CGA tandem stance, 30 seconds each with CGA and unilateral UE support Standing hip PREs, 10 times each direction walk with head turns, min A initially, progressing to CGA. 600', no device VITALS: Pre: 112/69, HR 72 Post: 113/63 HR 80 ? ASSESSMENT:? Walking frequently with nursing. Does have some minor balance impairments, with Peralta Score 45/56 (not indicating significant risk for falls or need for assistive device); initiated balance retraining activities yesterday. PLAN: Continue PT intervention for improved safety and activity tolerance. TREATMENT CODE/TIME: [id number] (78381a2) DISCHARGE RECOMMENDATION: Home with HH PT
[2025-06-24 16:03] VITALS: BP 84/71; PULSE 62; RESP 16; O2SAT 99
[2025-06-24 16:14] VITALS: BP 110/64
[2025-06-24] MEDS: Atorvastatin 40 MG TAB PO (20:01)
[2025-06-24] MEDS: traZODone 50 MG TAB PO (20:03)
[2025-06-24 20:12] VITALS: BP 92/65; PULSE 60; RESP 15; TEMP 36.7; O2SAT 96
[2025-06-25] MEDS: Melatonin 3 MG TAB 6 MG PO (02:44)
[2025-06-25] MEDS: Levothyroxine 125 MCG TAB PO (05:52)
[2025-06-25 06:53] LABS: Abs Immature Grans 0.01 10^3/uL (0.0-0.06); HCT 29.2 % (40.0-50.0); HGB 9.9 g/dL (13.5-17.5); Immature Grans % 0.3 %; MCH 30.7 pg (27.0-33.0); MCHC 33.9 % (32.0-36.0); MCV 91 fL (80-95); MPV 10.5 fL (8.0-11.0); RBC 3.22 10^6/uL (4.36-5.78); RDW 12.7 % (11.8-14.1); RDW-SD 42.1 fL; WBC 3.70 10^3/uL (4.4-10.8)
[2025-06-25 07:19] LABS: Anion Gap 1.9 mmol/L (3-11); BUN 38 mg/dL (7-18); CO2 36.1 mmol/L (21.0-32.0); Calcium 8.3 mg/dL (8.5-10.1); Chloride 100 mmol/L (98-107); Estimated GFR 45.06 (mL/min/1.73m2); Glucose 87 mg/dL (74-106); Magnesium 1.9 mg/dL (1.8-2.4); Potassium 3.5 mmol/L (3.5-5.1); Sodium 138 mmol/L (136-145)
[2025-06-25 07:22] LABS: Platelet Count 55 10^3/uL (130-400); RBC Morphology Normal
[2025-06-25 07:33] VITALS: BP 102/62; PULSE 72; RESP 17; TEMP 36.7; O2SAT 97
[2025-06-25] MEDS: Empaglifozin 25 MG TAB PO (07:55)
[2025-06-25] MEDS: Folic Acid 1 MG TAB PO (07:55)
[2025-06-25] MEDS: guaiFENesin 600 MG TABCR PO (07:55)
[2025-06-25] MEDS: Hydroxychloroquine 200 MG TAB PO (07:55)
[2025-06-25] MEDS: Potassium Chloride 20 MEQ TABCR PO (07:55)
[2025-06-25] MEDS: busPIRone 5 MG TAB PO (07:55)
[2025-06-25] MEDS: Multivitamin w/Minerals TAB 1 TAB PO (07:55)
[2025-06-25] MEDS: Apixaban 5 MG TAB PO (07:55)
[2025-06-25] MEDS: Torsemide 20 MG TAB PO ×2 (07:56→16:07)
[2025-06-25] MEDS: Diclofenac 1% Gel 100 GM TUBE TP (07:56)
[2025-06-25] MEDS: Psyllium PKT 1 EACH PO (07:56)
[2025-06-25] MEDS: Pantoprazole 40 MG TABCR PO ×2 (07:56→16:08)
[2025-06-25] MEDS: Docusate Sodium 100 MG CAP PO ×2 (07:56→16:08)
[2025-06-25] MEDS: Ketoconazole 2% CREAM 15 GM TUBE TP (08:02)
[2025-06-25] MEDS: Fluticasone NASAL SPRAY 16 GM BTL NS (08:02)
--- NOTE | 2025-06-25 08:49 | OT.INTREAT ---
Occupational Therapy Notes Occupational Therapy Inpatient Treatment Note Date: 06/25/25 PRECAUTIONS: Fall, Standard, Full SUBJECTIVE: Pt was lying in bed when OT arrived. He states that he is tired and was unable to sleep well last night. He is agreeable to session. OBJECTIVE: PAIN:no c/o pain FUNCTIONAL MOBILITY Walking without (A) device Rolling L/R: (I) Supine-sit: (I) Sit-supine: (I) Sit-stand: (I) Stand-sit: (I) Bed-Bathroom : (I) Bathroom -bed: (I) BATHING: Standing at sink with increased performance time Upper Body: (I) with no LOB or (A) needed Lower Body: seated on toilet (I) DRESSING: standing at sink with min vc for hand placement Upper Extremity: (I) don and doffing tshirt and sweater Lower Extremity: (I) don and doffing pants GROOMING: standing at sink (I) with brushing hair and teeth TOILETING: Device: on toilet Assist: (I) EATING: (I) seated in chair ASSESSMENT/PLAN: Pt was able to perform his ADLs in the standing position in the bathroom this morning. He has met all of his OT goals at this time and has been performing his ADLs with increased (I). He states that the plan is that he will return home today. TREATMENT CODES/TIME: 96245g3, 35 minutes Lydia May OTR/L [facility] [place], [place]
--- NOTE | 2025-06-25 09:11 | CMDISCH_ITS ---
Date of service: 06/25/25 Time of Service: 09:11 LACE Index Scoring Tool Questions: Length of Stay (in days): 7 - 13 Was the patient admitted via the E.D.?: No Comorbidities: Chronic Pulmonary Disease E.D. Visits: 0 Answers: Total Score: 7 Risk of Readmission: Low Risk Care Management Discharge Plan Reason for Hospitalization: TAVR/Deconditioning Discharge Plan: Caden will be discharged home with new services of RN/PT/OT/DIRECTOR OF LEARNING [facility] [facility] via private vehicle with son. He will have health-aid, housekeeping and tele-health through the [facility]. Caden will f/u with his PCP and his crm architect and continue per his discharge plan of care. Patient/Family Education Needs: Review discharge instructions and plan to follow up after discharge. Discuss ask me three. Services Needed at Discharge: Home Health Care Services ([facility])
--- NOTE | 2025-06-25 11:42 | W.PM.DS.N ---
Date of service: 06/25/25 Time of Service: 11:42 DS: Diagnosis Discharge Diagnosis (1) Chronic systolic (congestive) heart failure: (2) nursing home current use of anticoagulant: (3) Presence of prosthetic heart valve: (4) A-fib: (5) Anxiety disorder: (6) Sensorineural hearing loss: (7) Dyslipidemia: Status: Acute (8) Iron deficiency: Status: Acute (9) COPD (chronic obstructive pulmonary disease): Status: Chronic Discharge Plan Disposition Patient Disposition: Home W/Home Health Services Condition: Stable Discharge Details Reason For Visit: TAVR/Deconditioning Admit Date/Time: 06/18/25 19:25 Admit Provider: Bear Samano Attending Provider: Bear Samano Primary Care Provider: SHRUTI PADILLAINE Hospital Course Hospital Course: This is a 84-year-old gentleman with a past medical history of hypothyroidism, Atrial fibrillation on beta-abrahan and Eliquis, first TAVR in the s,HFpEF with moderately dilated LV w LVEF 65% and normal RV was transferred on 06/18/25 from [facility] s/p second prosthetic TAVR for severe aortic valve regurgitation for ongoing PT, OT. Jardiance up-titrated to 25 mg daily as per d/c recommendation, Losartan was not initiated d/t SBP 90- to low 100's, dose of metoprolol decreased to 12.5 mg at bedtime. The patient will be discharged home with home health nursing, physical and occupational therapy and medical records custodian. Cardiac rehabilitation consultant ordered ( to be seen before d/c) , Recommendation for PCP follow-up: TSH in a few weeks as per d/c summary from [facility] on 06/18/25 Low dose Losartan if adequate BP in the setting of moderate left and mild right artery stenosis- SBP 90's-100's in patient Spiriva if COPD exacerbation F/u with [facility] s/p TAVR in a month from 06/18- for echo, BMP, CBB Doxycycline prior to dental cleaning and procedure for endocarditis prevention Discussed with Dr. Samano Recommendations for Follow Up Recommended tests to be ordered by follow up provider: TSH Home Meds and New Rx's Prescriptions: New metoprolol succinate [Toprol XL] 25 mg tablet extended release 24 hr 12.5 mg PO HS Qty: 30 0RF Continued albuterol sulfate 2.5 mg /3 mL (0.083 %) solution for nebulization 2.5 mg inhalation Q6H PRN carboxymethylcellulose sodium 0.5 % drops 2 drp ophthalmic (eye) DIRECTED PRN diclofenac sodium 1 % gel 2 g topical DIRECTED Rx Instructions: apply to single elbow, wrist or hand; for hand includes palm/fingers/back of hand ferrous sulfate 325 mg (65 mg iron) capsule, extended release PO hydroxychloroquine 200 mg tablet 200 mg PO BID guaifenesin 600 mg tablet extended release 12hr 600 mg PO BID Patient Comments: TAKE ONE TABLET BY MOUTH EVERY 12 HOURS FOR 7 DAYS Rx Instructions: DO NOT CRUSH OR OPEN fluticasone propionate [Flonase Allergy Relief] 50 mcg/actuation spray,suspension 2 spray intranasal DAILY Rx Instructions: administer into each nostril lidocaine 3 % cream 1 applic topical DAILY Patient Comments: APPLY TO ARM/ELBOW potassium chloride [Klor-Con M20] 20 mEq tablet,ER particles/crystals 20 meq PO DAILY Daily Fiber (psyllium-aspart) 3 gram powder in packet 1 packet PO BID doxycycline hyclate 100 mg capsule 100 mg PO ONCE Rx Instructions: TAKE ONE TABLET 30-60 MIMUTES PRIOR TO DENTAL CEANINGS OR PROCEDURES torsemide 20 mg tablet 20 mg PO BID pantoprazole [Protonix] 40 mg tablet,delayed release (DR/EC) 40 mg PO BID trazodone 50 mg tablet 50 mg PO DAILY Patient Comments: Bedtime Rx Instructions: BEDTIME nitroglycerin 0.4 mg tablet, sublingual 0.4 mg sublingual Q5-15M PRN Rx Instructions: do not exceed 3 doses per episode, as needed for chest pain. acetaminophen 500 mg tablet 1,000 mg PO Q6H PRN ketoconazole 2 % cream 1 applic topical DAILY Rx Instructions: fungal infection on feet ipratropium-albuterol 0.5 mg-3 mg(2.5 mg base)/3 mL solution for nebulization 3 ml inhalation Q6H Rx Instructions: 4 times daily, nebulization atorvastatin 40 mg Tablet 40 mg PO DAILY Patient Comments: every evening omeprazole 20 mg Capsule,Delayed Release(Dr/Ec) 20 mg PO BID folic acid 1 mg Tablet 1 mg PO DAILY apixaban 5 mg Tablet 1 tab PO BID Patient Comments: BID scheduled 09:00-21:00 buspirone 5 mg Tablet 5 mg PO BID Patient Comments: BID 09:00 - 21:00 polyethylene glycol 3350 [Miralax] 17 gram Powder In Packet 17 g PO DAILY PRN tramadol 50 mg Tablet 50 mg PO BID PRN spironolactone 25 mg Tablet 25 mg PO DAILY levothyroxine 125 mcg Tablet 125 mcg PO DAILY docusate sodium [Colace] 100 mg Capsule 100 mg PO DAILY PRN Changed Jardiance 25 mg tablet 25 mg PO DAILY Qty: 0 0RF Discontinued metoprolol tartrate 25 mg tablet 12.5 mg PO BID Rx Instructions: AM AND BEDTIME triamcinolone acetonide 0.1 % Cream 1 applic TOPICAL DAILY PRN Discharge Instructions Instructions: Aortic Valve Replacement (DC) Referrals: ERNST PADILLA [Primary Care Provider, Medicine] Activity:: Activity as Tolerated Equipment/Supplies:: No Equipment Needed Diet:: Low Sodium DS: Summary Time Spent with Patient providing and/or coordinating discharge services: Greater than 30 minutes Status at Discharge Functional status at discharge: independent ambulation Overall status at discharge: patient is progressing back to baseline Mental Status: mental status grossly normal Speech and Movement: speech and movement normal Mood: congruent mood Affect: normal affect Exam Const General: cooperative, healthy appearing, comfortable and no acute distress Orientation: alert, awake and oriented x3 HENMT Head: normocephalic General nose exam: external nose normal Face and sinus: normal facial exam Mouth: moist mucous membranes Eyes General: appearance normal, both eyes and all related structures Alignment and Position: alignment normal Conjunctivae: conjunctivae normal Sclera: sclerae normal EOM: EOM intact bilaterally Neck Neck: normal visual inspection and supple Resp Effort & Inspection: normal respiratory effort and able to speak in complete sentences Auscultation: clear to auscultation bilaterally Cardio Rate: regular rate Rhythm: regular rhythm GI Palpation: soft and nontender Back/Spine/Pelvis Back: No back tenderness Skin General skin exam: no rashes or lesions noted Neuro General: patient alert, patient awake and patient oriented x3 Cognition: normal cognition Speech: speech normal Sensory Exam: no sensory deficits noted Extrem Right lower extremity: normal to inspection and full ROM Left lower extremity: full ROM Psych Appearance: grossly normal Mental Status: mental status grossly normal Speech and Movement: speech and movement normal Mood: congruent mood Affect: normal affect DS: Data Vitals/I&O Vitals and I&O: Vital Signs Temperature 36.7 C 06/25/25 07:33 Temperature Source Temporal Artery Scan 06/25/25 07:33 Pulse 72 06/25/25 07:33 Pulse Rhythm Irregular 06/18/25 19:39 Respiratory Rate 17 06/25/25 07:33 Respiratory Effort Normal, Non-Labored 06/18/25 19:39 Respiratory Depth Normal 06/18/25 19:39 Respiratory Pattern Normal 06/18/25 19:39 Blood Pressure 102/62 06/25/25 07:33 Blood Pressure Mean 75 06/25/25 07:33 Pulse Oximetry 97 06/25/25 07:33 Oxygen Delivery Method Room Air 06/25/25 07:33 Oxygen Flow Rate 0 06/25/25 07:33 Pain Level 2 06/25/25 09:10 Comment nurse notified 06/22/25 19:18 Intake & Output 06/24/25 06/24/25 06/25/25 11:59 23:59 11:59 Intake Total 240 / 720 480 / 720 300 / 300 Output Total 1550 / 2750 1200 / 2750 800 / 800 Balance -1310 / -2030 -720 / -2030 -500 / -500 Intake: Oral 240 / 720 480 / 720 300 / 300 Output: Urine 1550 / 2750 1200 / 2750 800 / 800 Other: Urine Color Yellow Pale Pale Yellow Yellow Urine Appearance Clear Clear Clear Urine Odor Normal Normal Normal Comment Pt voids ind. in toilet. Pt voids ind. in toilet. Stool Size Moderate Stool Characteristics Formed Brown Data Completed and Pending Labs on day of discharge: Labs from last 24 hours 06/25/25 06:38 WBC 3.70 L RBC 3.22 L Hgb 9.9 L Hct 29.2 L MCV 91 MCH 30.7 MCHC 33.9 RDW 12.7 Plt Count 55 L MPV 10.5 Immature Gran % 0.3 Neutrophils % 74.5 Lymphocytes % 13.0 Monocytes % 9.5 Eosinophils % 1.6 Basophils % 1.1 Nucleated RBC % 0.0 Absolute Neutrophils 2.76 Absolute Lymphocytes 0.48 L Absolute Monocytes 0.35 Absolute Eosinophils 0.06 Absolute Basophils 0.04 RBC Morphology Normal Sodium 138 Potassium 3.5 Chloride 100 Carbon Dioxide 36.1 H Anion Gap 1.9 L BUN 38 H Creatinine 1.5 H Est GFR (CKD-EPI 2020) 45.06 Glucose 87 Calcium 8.3 L Magnesium 1.9 PFSH All Active Problems (Updated 06/18/25 @ 22:33 by Bear Samano MD) COPD (chronic obstructive pulmonary disease) (Chronic) Iron deficiency (Acute) Dyslipidemia (Acute) Corns and callosities (Acute) Pain, foot (Acute) Nail dystrophy (Acute) Laceration of scalp (Acute) Head injury (Acute) Fall (Acute) Medical History (Updated 06/18/25 @ 22:33 by Bear Samano MD) A-fib Sensorineural hearing loss Rheumatoid arthritis Presence of prosthetic heart valve Other specified hypothyroidism Other hammer toe (acquired) nursing home current use of anticoagulant Keratoderma, acquired Impotence of organic origin Closed fracture of humerus Closed fracture of clavicle Erythematous condition Dyskinesia of esophagus Dermatophytosis of nail Chronic systolic (congestive) heart failure Celiac disease Anxiety disorder Dysphagia Surgical History (Updated 08/21/22 @ 15:15 by Kayce Gee) Presence of other heart-valve replacement Social History Smoking/Tobacco Use Status: Never Smoking risk assessment performed?: Yes Drug use: Never Substance use type: does not use Housing: house Education Level: high school (+ ) Current gender identity: male Do you feel safe at home: Yes Do you feel safe in your relationship?: Yes Time Spent with Patient Time Spent with Patient: 70-84 minutes4 Time was spent: preparing to see the patient(eg.review tests), obtaining and/or reviewing separately otained hiistory, ordering medications,tests, procedures, referring, communicating with other health daycare provider, indepentently interpreting results, counseling the patient and care coordination
--- NOTE | 2025-06-25 12:00 | PT.INTREAT ---
PT Notes Visit Reasons: TAVR/Deconditioning Inpatient Physical Therapy Treatment Note [facility] Date: 06/25/25 (first session) PRECAUTIONS: standard SUBJECTIVE: He reports he only got 2 hours sleep last night. He states he is nervous and anxious about going home so he got himself worked up during the night OBJECTIVE: ? ? Patient presented seated on edge of bed talking with adult day care worker regarding medications/pillbox set up for home.? Therapeutic Activities (54023u2): Direct one-on-one instruction in dynamic activities to improve functional performance. ? BED MOBILITY/TRANSFERS? Supine-sit: independent? Sit-supine: independent? Sit-stand: independent? Stand-sit: independent? Bed-Chair: independent? Chair-bed: independent?Gait Trainin Stairs : 14 steps with 1 rail with CGA reciprocal pattern ascending and step to pattern descending x 2 trials ?with stand rest between trials. 5 steps with 1 rail SBA reciprocal pattern ? Neuromuscular Re-education (36753z9): Activities that facilitate re-education of movement balance, posture, coordination, and proprioception or kinesthetic sense, requiring skilled tactile and verbal cue ? Exercises/techniques: Instructed in the following balance activities, using intermittent support to rail as needed. CGA throughout. carioca 6'x2, max verbal and visual cues step ups 10x each, CGA and no UE support sit-stand 10x Heel raises 10 times Static standing with feet together, eyes closed, 30 seconds x 2 with CGA tandem stance, 30 seconds each with CGA and unilateral UE support Standing hip PREs, 10 times each direction walk with head turns, min A intermittently, progressing to CGA when he reduced speed . 600', no device ? ASSESSMENT:?Pt denied shakiness but felt anxious this session. needing cues to attend to task for balance retraining. Pt continues with limitations in SL stance tasks without UE support. Pt demonstrates impaired tibial advancement/ DF on right for descending safely reciprocal pattern as noted by early heel off. PLAN: Continue PT intervention for improved safety and activity tolerance. TREATMENT CODE/TIME: 3059-8049 /[id number], [id number] DISCHARGE RECOMMENDATION: Home with PT
--- NOTE | 2025-06-25 15:23 | PDOC.HHF2F_ITS ---
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 Registered Nurse: Check all that apply Instruct on new or changed medication(s)/assess compliance: Ordered Assess for exacerbation of medical condition, instruct patient/caregivers on signs and symptoms to report for early detection: Ordered Physical Therapist: Check all that apply Increase strength & endurance for safe mobility at home: Ordered To design/establish home maintenance program: Ordered Fall reduction therapy program for patient with history of frequent falls: Or dered Home safety evaluation and teaching/gait training including stair management (if applicable): Ordered Occupational Therapist: Evaluate and treat for patient unable to perform ADL/IADL/self-care: Ordered Upper extremity strengthening, range and motion: Ordered Security Operations Engineer: Assist with community resources: Ordered Assist with long term care phlebotomist care planning: Ordered Home Bound Status Describe why leaving home would require a considerable and taxing effort: Safety Concerns: describe Encounter Date and Reason: I certify that a [facility]TF encounter for this patient was performed on June 25, 2025 and that such encounter was related to the primary reason the patient requires home health services. The encounter was conducted in the following manner: * By me as the certifying physician, STRIP CUTTING MACHINE OPERATOR, PA or * By an inpatient physician, STRIP CUTTING MACHINE OPERATOR or PA during an inpatient stay who communicated findings to me, Certification And Authentication I certify that I composed the above information based on my clinical judgment relating to this patient's medical condition and, if applicable, clinical findings communicated to me by the NPP or inpatient physician who performed the FTF encounter. Name of Provider that will be monitoring home health services: ERNST FRANKLIN
--- NOTE | 2025-06-25 15:41 | PT.INTREAT ---
PT Notes Visit Reasons: TAVR/Deconditioning Inpatient Physical Therapy Treatment Note [facility] Date: 06/25/25 (second session) PRECAUTIONS: standard SUBJECTIVE: Nayan states he is concerned about his medications being set up. OBJECTIVE: ? ? Patient presented seated in the chair ? Therapeutic Activities ([id number]): Direct one-on-one instruction in dynamic activities to improve functional performance. ? BED MOBILITY/TRANSFERS? Supine-sit: independent? Sit-supine: independent? Sit-stand: independent? Stand-sit: independent? Bed-Chair: independent? Chair-bed: independent? Neuromuscular Re-education ([id number]): Activities that facilitate re-education of movement balance, posture, coordination, and proprioception or kinesthetic sense, requiring skilled tactile and verbal cue ? Exercises/techniques: Instructed in the following balance activities, using intermittent support to rail as needed. CGA throughout. carioca 6'x2, max verbal and visual cues step ups 10x each, CGA and no UE support sit-stand 10x Sidestepping x 10 feet R/L with minimal cues to sustain neutral rotation of hip as patient preference for external rotation Heel raises 10 times Standing hip PREs, 10 times each direction walk with head turns, min A intermittently, progressing to CGA when he reduced speed . 600', no device forward stepping with contralateral arm swing x 5 reps R/L with 1 upper extremity support Lateral stepping with ipsilateral arm swing x 5 reps R/L with 1 upper extremity support Reverse stepping with ipsilateral arm swing x 5 reps R/L with 1 upper extremity support ? ASSESSMENT:?Tolerated session well with addition of new stepping techniques to facilitate balance reactions to reduce risk for falls. Patient demonstrates independent functional mobility within room including item retrieval and transport without loss of balance. PLAN: Continue PT intervention for improved safety and activity tolerance until appropriate for discharge TREATMENT CODE/TIME: 97973/2:30 PM?2:56 PM DISCHARGE RECOMMENDATION: Home with PT
== END 2025-06-25 18:03 | disposition home health service (06) | DRG 948 ==
PROVIDERS: Admitting Provider Hospitalist; PCP Internal Medicine; Responsible Provider Nurse Practitioner Acute Care; Visit Provider Hospitalist
DX: R53.81 Other malaise (principal); I50.22 Chronic systolic (congestive) heart failure; Z95.4 Presence of other heart-valve replacement; F41.9 Anxiety disorder, unspecified; I48.91 Unspecified atrial fibrillation; E78.5 Hyperlipidemia, unspecified; E61.1 Iron deficiency; J44.9 Chronic obstructive pulmonary disease, unspecified; K90.0 Celiac disease; E03.9 Hypothyroidism, unspecified; Z79.01 Long term (current) use of anticoagulants; Z79.899 Other long term (current) drug therapy
CPT/HCPCS: 00123; 36415; 80048; 97110; 97112; 97116; 97162; 97166; 97530; 97535; 99305; 99316; 83735; 85025; 94667; 94760; 99222; J3490